=== PATIENT | female | born 2000 | race Asian ===

== ENCOUNTER 2024-11-10 13:17 | Outpatient (AMB) | payer MEDICAID, SELFPAY ==
--- NOTE | 2024-11-10 13:30 | AMB.OBINITIA ---
Vital Signs 11/10/24 13:36 Height 1.57 m Height Method Measured Weight 89.925 kg Weight Measurement Method Standing Scale BMI 36.2 BP 142/81 H Blood Pressure Source Automatic Cuff Blood Pressure Location Right Upper Arm Position Sitting Respiration 17 Pulse 82 Pulse Source Monitor Temp 98.1 F Temp Source Temporal Artery Scan Pulse Oximetry (%) 98 Oxygen Delivery Method Room Air Allergies/Home Meds Allergies & Medications Allergies No Known Allergies Allergy (Verified 11/10/24 13:37) Medication Reconciliation vit no.95-ferrous fumarate 28 mg-folic acid 800 mcg tablet () 1 tab PO QDAY 10/14/23 [History Confirmed 11/10/24] Intake Visit Data Collection New Patient or Established: Established Patient (seen at [facility] within 3 years) Reason for Visit:: OBI Seen by Clinical Staff ONLY (RN/MA): No Audio Visual Facilities Engineer Required: No Do You Feel Safe at Home: Yes Authorities Contacted: N/A PCP or OBGYN visit in last 3 months: Yes Date of Last PCP or OBGYN visit: 10/21/24 Hx Now: Yes Are you currently on any form of Control: No Pain Present Currently: No Pain Scale Used: Kaiser-Kasper/Numerical Pain scale:: 0 Smoking Status Smoking Status: Never smoker Questionnaires Covid-19 Vaccine Questionnaire Has patient been vacinated for Covid-19 Have you been vacinated for Covid-19: Yes PHQ-9 PHQ-2 Over the last 2 weeks, how often have you been bothered by any of the following problems? 1. Little interest or pleasure in doing things: not at all 2. Feeling down, depressed, or hopeless: not at all Total score: 0 PHQ-9 3. Trouble falling or staying asleep, or sleeping too much: Not at all 4. Feeling tired or having little energy: Not at all 5. Poor appetite or overeating: Not at all 6. Feeling bad about yourself - or that you are a failure or have let yourself or your family down: Not at all 7. Trouble concentrating on things, such as reading the newspaper or watching television: Not at all 8. Moving or speaking so slowly that other people could have noticed? - Or the opposite - being so fidgety or restless that you have been moving around a lot more than usual: not at all 9. Thoughts that you would be better off or of hurting yourself in some way: Not at all Total score: 0 If you checked off any problems, how difficult have these problems made it for you to do your work, take care of things at home, or get along with other people?: not difficult at all Source: Developed by Drs. Anand Min, Joycelyn Carter, Sarkis Hearn and colleagues, with an educational conchita from [employer]. 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 Her last menstrual period was on September 03, 2024. A bedside ultrasound revealed an empty gestational sac without a pole or heart tones. The patient's status is currently uncertain. Given the discrepancy between the patient's reported last menstrual period and the ultrasound findings, further evaluation was deemed necessary. As a result, the patient was referred to radiology for a more detailed transvaginal ultrasound. The patient has a history of one previous , with no further details provided about this previous delivery. Her obstetric history is significant for one prior resulting in a live via . Diagnostic Test Results and Labs: - Bedside ultrasound (Date N/A): Empty gestational sac without pole or heart tones. 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 Past Medical History: No Hx Neurological Disorders, No Hx Cardiac Disorders, No Hx Cancer, No Hx Blood Disorders, No Hx Anemia, No Hx Gastrointestinal Disorders, No Hx Renal Disease, No Hx Diabetes Mellitus Type 1 and No Hx Diabetes Mellitus Type 2 OB Initial Visit Menstrual History Menstrual reliability: definite Flow: normal Menstrual regularity: irregular Monthly: No Age at menarche: 18 On control pills at conception: No Date of positive home test: 10/21/24 OB History : 2 Para: 1 Hx # Pregnancies: 0 Hx Total # of Abortions (Spontaneous & Elective): 0 # of Living Children: 1 Delivery History 1st : Child's name: PONCHO GÓMEZ date: 10/15/23 sex: male Gestational age at delivery (weeks): 39 Delivery type: weight (lbs): 3175.147 g Delivery complications: HYPERTENSION History of depression before or after : No Infection History & Risk Evaluation History of STDs: chlamydia HIV risk evaluation: low risk Hepatitis B risk evaluation: low risk Patient or partner has history of Genital Herpes: No Genetic Screening & History Genetic Screening/Teratology Counseling - Includes patient, baby's father, or anyone in either family with: 1. Patient's age 35 years or older as of estimated date of delivery: No 2. Thalassemia (Mongolian, Surinamese, Mediterranean, or Background); MCV less than 80: No 3. Neural Tube Defect (Meningomyelocele, Spina Bifida, or Anencephaly): No 4. Congenital Heart Defect: No 5. Down Syndrome: No 6. Xiang-Sachs (Ashkenazi Hoahaoism, Cajun, Tunisian Ecuadorean): No 7. Consuelo Disease (Ashkenazi Hoahaoism): No 8. Familial Dysautonomia (Ashkenazi Hoahaoism): No 9. Sickle Cell Disease or Trait (): No 10. Hemophilia or other blood disorders: No 11. Muscular Dystrophy: No 12. Cystic Fibrosis: No 13. Albemarle's Chorea: No 14. Mental Retardation/Autism: No 15. Other inherited genetic or chromosomal disorder: No 16. Maternal Metabolic Disorder (EG,TYPE 1 Diabetes, PKU): No 17. Patient or baby's father had a child with defects not listed above: No 18. Recurrent loss or a stillbirth: No 19. Medications (including supplements, vitamins, herbs or otc drugs)/illicit/recreational drugs/alcohol since last menstrual period: No 20. Any other: No Infection History 1. Live with someone with TB or exposed to TB: No 2. Rash or viral illness since last menstrual period: No 3. Hepatitis B,C: No Other (see comments) Source: [employer] Review of Systems Review of Systems Systems Reviewed: All systems reviewed, normal except as documented Office Procedures OB Clinic LOC & Office Proc's Nursing/Assessment Patient Status: Established Patient OB Clinic Nursing Assessment: Medication Reconciliation, Update PMH in EMR and Vital Signs OB Clinic Coordination of Care: Complex Care/Chronic Disease 5 or more, Consent,records obtained, informed consent, Lab and Imaging orders and Staff clarify orders Special Needs: Heart tones Established Patient Charge Established Patient Point Assignment: 125 Established Patient Point Charge: EP Level 4 (120-155) Assessment & Plan Diagnosis / Problem List (1) of unknown anatomic location: Status: Acute Plan Early with Empty Gestational Sac: - Last menstrual period on 09/03/2024. - Bedside ultrasound shows empty gestational sac. - No pole or heart tones visible. - Concerning for potential early loss or ectopic . - Discrepancy between expected gestational age and ultrasound findings. Plan: - Perform transvaginal ultrasound in radiology for more detailed assessment. - Await results of transvaginal ultrasound for further management decisions. Note: Patient is 2 para 1 with history of previous .
[2024-11-10 13:36] VITALS: BP 142/81; PULSE 82; RESP 17; TEMP 36.7; O2SAT 98; BMI 36.2
== END 2024-11-10 14:05 | disposition home or self-care (01) ==
LOC: HODSOBC 13:17
PROVIDERS: Supervising Provider Obstetrics & Gynecology; Visit Provider Obstetrics & Gynecology
DX: O36.80X0 Pregnancy with inconclusive fetal viability, not applicable or unspecified (principal); Z3A.00 Weeks of gestation of pregnancy not specified
CPT/HCPCS: 99214; G0463

== ENCOUNTER → 2024-11-13 | Outpatient (CLI) | payer MEDICAID, SELFPAY ==
--- NOTE | 2024-11-13 13:42 | XR_ITS ---
Examination: Complete OB ultrasound, less than 14 weeks, transabdominal Date and time of exam: November 13, 2024 1409 hours INDICATIONS: Unknown age Technique: Obstetrical ultrasound images less than 14 weeks performed via transabdominal imaging Findings: A normal shaped single intrauterine gestation is present in the uterus. CRL 2.2 cm corresponds to 8 week 6 day gestational age Cardiac motion 176 BPM Ultrasonographic survey of visible and placental structures unremarkable. Amniotic fluid volume appears appropriate for this estimated gestational age. Right ovary 3.7 cm arterial flow Left ovary 4.7 cm arterial flow IMPRESSION: Viable intrauterine gestation 8 weeks 6 days Mildly prominent left ovary, recommend follow-up.
== END | disposition home or self-care (01) ==
PROVIDERS: Referring Provider Obstetrics & Gynecology; Visit Provider Obstetrics & Gynecology
DX: O36.80X0 Pregnancy with inconclusive fetal viability, not applicable or unspecified (principal); Z3A.08 8 weeks gestation of pregnancy; N83.8 Other noninflammatory disorders of ovary, fallopian tube and broad ligament
CPT/HCPCS: 76801

== ENCOUNTER 2024-11-22 11:02 | Outpatient (AMB) | payer MEDICAID, SELFPAY ==
[2024-11-22 11:23] VITALS: BP 109/71; PULSE 72; RESP 17; TEMP 36.8; O2SAT 98; BMI 35.6
--- NOTE | 2024-11-22 11:23 | OBCLNT_ITS ---
Vital Signs 11/22/24 11:23 Height 1.57 m Height Method Measured Weight 87.77 kg Weight Measurement Method Standing Scale BMI 35.6 BP 109/71 Blood Pressure Source Automatic Cuff Blood Pressure Location Right Upper Arm Position Sitting Respiration 17 Pulse 72 Pulse Source Monitor Temp 98.2 F Temp Source Temporal Artery Scan Pulse Oximetry (%) 98 Oxygen Delivery Method Room Air Allergies/Home Meds Allergies & Medications Allergies No Known Allergies Allergy (Verified 11/22/24 11:24) Medication Reconciliation vit no.95-ferrous fumarate 28 mg-folic acid 800 mcg tablet () 1 tab PO QDAY 10/14/23 [History Confirmed 11/22/24] Intake Visit Data Collection New Patient or Established: Established Patient (seen at [facility] within 3 years) Reason for Visit:: OBC Consent obtained for Telemed Visit: No Seen by Clinical Staff ONLY (RN/MA): No Activity Aid Required: No Do You Feel Safe at Home: Yes Authorities Contacted: N/A PCP or OBGYN visit in last 3 months: Yes Date of Last PCP or OBGYN visit: 11/10/24 Hx Now: Yes Are you currently on any form of Control: No Pain Present Currently: No Pain Scale Used: Kaiser-Kasper/Numerical Pain scale:: 0 Smoking Status Smoking Status: Never smoker Questionnaires Covid-19 Vaccine Questionnaire Has patient been vacinated for Covid-19 Have you been vacinated for Covid-19: Yes PHQ-9 PHQ-2 Over the last 2 weeks, how often have you been bothered by any of the following problems? 1. Little interest or pleasure in doing things: not at all PHQ-9 8. Moving or speaking so slowly that other people could have noticed? - Or the opposite - being so fidgety or restless that you have been moving around a lot more than usual: not at all Total score: 0 Source: Developed by Drs. Anand Min, Joycelyn Carter, Sarkis Hearn and colleagues, with an educational conchita from [employer]. 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 Past Medical History: No Hx Neurological Disorders, No Hx Cardiac Disorders, No Hx Cancer, No Hx Blood Disorders, No Hx Anemia, No Hx Gastrointestinal Disorders, No Hx Renal Disease, No Hx Diabetes Mellitus Type 1 and No Hx Diabetes Mellitus Type 2 Care ANA CRISTINA Calculator Estimated Delivery Date Method Current WG Current Estimate 06/19/25 Ultrasound #1 10w 1d Office Procedures OB Clinic LOC & Office Proc's Nursing/Assessment Patient Status: Established Patient OB Clinic Nursing Assessment: Medication Reconciliation, Update PMH in EMR and Vital Signs OB Clinic Coordination of Care: Complex Care and Chronic Disease 1-5, Education Complex Pt/Fam, Consent,records obtained, informed consent, Education Simp Pt/Fam and Staff clarify orders Special Needs: Heart tones Established Patient Charge Established Patient Point Assignment: 135 Established Patient Point Charge: EP Level 4 (120-155)
== END 2024-11-22 11:34 | disposition home or self-care (01) ==
LOC: HODSOBC 11:02
PROVIDERS: Supervising Provider Obstetrics & Gynecology; Visit Provider Obstetrics & Gynecology
DX: Z34.91 Encounter for supervision of normal pregnancy, unspecified, first trimester (principal); Z3A.10 10 weeks gestation of pregnancy
CPT/HCPCS: 99214; G0463

== ENCOUNTER 2024-12-20 10:00 | Outpatient (AMB) | payer MEDICAID, SELFPAY ==
[2024-12-20 10:11] VITALS: BP 111/71; PULSE 77; RESP 17; TEMP 36.7; O2SAT 98; BMI 35.4
--- NOTE | 2024-12-20 10:11 | OBCLNT_ITS ---
Vital Signs 12/20/24 10:11 Height 1.57 m Height Method Stated Weight 87.203 kg Weight Measurement Method Standing Scale BMI 35.4 BP 111/71 Blood Pressure Source Automatic Cuff Blood Pressure Location Right Upper Arm Position Sitting Respiration 17 Pulse 77 Pulse Source Monitor Temp 98.0 F Temp Source Temporal Artery Scan Pulse Oximetry (%) 98 Oxygen Delivery Method Room Air Allergies/Home Meds Allergies & Medications Allergies No Known Allergies Allergy (Verified 02/19/25 10:02) Medication Reconciliation aspirin 81 mg tablet 81 mg PO QDAY 90 days #90 tabs 01/26/25 [Rx Confirmed ] vits no.126-ferrous fum 28 mg iron-folic acid 800 mcg tablet (Classic ) 1 tab PO QDAY 90 days #90 tabs 02/05/25 [Rx Confirmed 02/19/25] blood sugar diagnostic (Blood Glucose Test strips) #100 ea 02/26/25 [Rx] blood-glucose meter #1 ea 02/26/25 [Rx] lancets 21 gauge #100 ea 02/26/25 [Rx] Intake Visit Data Collection New Patient or Established: Established Patient (seen at [facility] within 3 years) Reason for Visit:: OBC 14W Seen by Clinical Staff ONLY (RN/MA): No Sensor Specialist Required: No Do You Feel Safe at Home: Yes Authorities Contacted: N/A PCP or OBGYN visit in last 3 months: Yes Date of Last PCP or OBGYN visit: 11/22/24 Hx Now: Yes Are you currently on any form of Control: No Pain Present Currently: No Pain Scale Used: Kaiser-Kasper/Numerical Pain scale:: 0 Smoking Status Smoking Status: Never smoker Questionnaires Covid-19 Vaccine Questionnaire Has patient been vacinated for Covid-19 Have you been vacinated for Covid-19: No PHQ-9 PHQ-2 Over the last 2 weeks, how often have you been bothered by any of the following problems? 1. Little interest or pleasure in doing things: not at all 2. Feeling down, depressed, or hopeless: not at all Total score: 0 PHQ-9 3. Trouble falling or staying asleep, or sleeping too much: Not at all 4. Feeling tired or having little energy: Not at all 5. Poor appetite or overeating: Not at all 6. Feeling bad about yourself - or that you are a failure or have let yourself or your family down: Not at all 7. Trouble concentrating on things, such as reading the newspaper or watching television: Not at all 8. Moving or speaking so slowly that other people could have noticed? - Or the opposite - being so fidgety or restless that you have been moving around a lot more than usual: not at all 9. Thoughts that you would be better off or of hurting yourself in some way: Not at all Total score: 0 If you checked off any problems, how difficult have these problems made it for you to do your work, take care of things at home, or get along with other people?: not difficult at all Source: Developed by Drs. Anand Min, Joycelyn Carter, Sarkis Hearn and colleagues, with an educational conchita from [facility]. 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 Patient reports nausea and vomiting that has dialed down a bit. Denies VICK, VC, and epigastric pain. - Leo Izaguirre is a 2 para 1 fe male with a history of one prior section presenting for routine care at 14 weeks and 1 day gestation. - She reports that her nausea and vomiti ng have dialed down a bit since her last visit. - She confirms awareness that she is carrying a male fetus. - Follow up in one month for routine care - Patient will receive call from [facility] for 20-week ultrasound (due in February) - Repeat scheduled at 39 weeks , one week before due date - If water breaks: deliver at 37+ weeks; hospitalize with medications for delivery between 34-37 weeks; hospitalize until 34 weeks if rupture occurs before 34 weeks 02/05/25 -?-?-?-?-?-?-?-?-?-?-?-?- 20w 6d 93.95 kg 126/76 absent cephalic 21 145 active presenting for blood pressure check. - Current blood pressure: 126/76 mmHg - Improved from last week's elevated r eading of 136/76 mmHg - Patient was prescribed low-dose aspiri n at previous visit - Has not yet started taking it - Patient inquired about obtaining a WIC referral - Confirms plans to attempt (Vaginal After ) Plan - Start low-dose aspirin regimen - Send prescription for aspirin to [facility] - Follow up in 4 weeks - Return sooner if experiencing headache , bloating, or feeling uneasy - Continue with V-FARIDA plan - Patient to obtain WIC referral form [facility] WIC office for completion ANA CRISTINA Calculator Estimated Delivery Date Method Current WG Current Estimate 06/19/25 Ultrasound #1 24w 4d Notes Visit Date: 12/20/24 Last Updated by: Delvis Bangura MD - Date: 11/26/2024 - Initial panel: Hepatitis B negative, Hepatitis C negative, RPR non-reactive, Rubella immune, Blood group B-positive, Antibody screen negative, Gonorrhea negative, Chlamydia negative - Urinalysis: Grossly within normal limits with 1+ protein and 1+ ketones - Genetic screening (NiPT): Negative for trisomies, consistent with male gender - Obstetric ultrasound (12/20/2024): anatomy appropriate, placenta normal appearance, amniotic fluid normal, gender male heart tones: Not documented bpm. Assessment & Plan Diagnosis / Problem List (1) Abnormal glucose complicating : Status: Acute (2) Uterine size date discrepancy, antepartum: Status: Acute (3) Maternal care for low transverse scar from previous delivery: Status: Acute (4) Supervision of high risk , unspecified, first trimester: Status: Acute Plan Problem List - , second trimester - History of delivery - Nausea and vomiting of - Proteinuria - Ketonuria Assessment 14-week and 1-day intrauterine in a 2, para 1 patient with history of previous section, progressing appropriately with normal anatomy on ultrasound examination. Initial laboratory panel demo nstrates negative infectious disease screening including hepatitis B, hepatitis C, syphilis, gonorrhea, and chlamydia, with documented rubella immunity and B- positive blood type with negative antibody screen. Genetic screening via NIPT is negative for trisomies with male gender confirmed. Urinalysis shows trace proteinuria and ketonuria but is otherwise within normal limits. Patient reports improvement in nausea and vomiting symptoms. Ultrasound examination reveals normal anatomy, appropriate amniotic fluid levels, and normal placental appearance. Plan - Follow up in one month for routine care - Patient will receive call from [facility] for 20-week ultrasound (due in February) - Repeat scheduled at 39 weeks, one week before due date - If water breaks: deliver at 37+ weeks; hospitalize with medications for delivery between 34-37 weeks; hospitalize until 34 weeks if rupture occurs before 34 weeks
== END 2024-12-20 10:41 | disposition home or self-care (01) ==
LOC: HODSOBC 10:00
PROVIDERS: PCP Obstetrics & Gynecology; Referring Provider Obstetrics & Gynecology; Supervising Provider Obstetrics & Gynecology; Visit Provider Obstetrics & Gynecology
DX: O09.892 Supervision of other high risk pregnancies, second trimester (principal); O26.842 Uterine size-date discrepancy, second trimester; O99.810 Abnormal glucose complicating pregnancy; O21.9 Vomiting of pregnancy, unspecified; O09.292 Supervision of pregnancy with other poor reproductive or obstetric history, second trimester; O34.211 Maternal care for low transverse scar from previous cesarean delivery; Z3A.14 14 weeks gestation of pregnancy
CPT/HCPCS: 99213; G0463

== ENCOUNTER 2025-01-26 14:27 | Outpatient (AMB) | payer MEDICAID, SELFPAY ==
[2025-01-26 14:37] VITALS: BP 136/76; PULSE 96; RESP 16; TEMP 36.6; O2SAT 98; BMI 37.5
--- NOTE | 2025-01-26 14:37 | OBCLNT_ITS ---
Vital Signs 01/26/25 14:37 Height 1.57 m Height Method Stated Weight 92.703 kg Weight Measurement Method Standing Scale BMI 37.5 BP 136/76 H Blood Pressure Source Automatic Cuff Blood Pressure Location Left Upper Arm Position Sitting Respiration 16 Pulse 96 Pulse Source Monitor Temp 97.8 F Temp Source Oral Pulse Oximetry (%) 98 Oxygen Delivery Method Room Air Allergies/Home Meds Allergies & Medications Allergies No Known Allergies Allergy (Verified 02/19/25 10:02) Medication Reconciliation aspirin 81 mg tablet 81 mg PO QDAY 90 days #90 tabs 01/26/25 [Rx Confirmed 02/19/25] vits no.126-ferrous fum 28 mg iron-folic acid 800 mcg tablet (Classic ) 1 tab PO QDAY 90 days #90 tabs 02/05/25 [Rx Confirmed 02/19/25] blood sugar diagnostic (Blood Glucose Test strips) #100 ea 02/26/25 [Rx] blood-glucose meter #1 ea 02/26/25 [Rx] lancets 21 gauge #100 ea 02/26/25 [Rx] Intake Visit Data Collection New Patient or Established: Established Patient (seen at [facility] within 3 years) Reason for Visit:: OBC Seen by Clinical Staff ONLY (RN/MA): No 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 1. Little interest or pleasure in doing things: not at all 2. Feeling down, depressed, or hopeless: not at all Total score: 0 PHQ-9 3. Trouble falling or staying asleep, or sleeping too much: Not at all 4. Feeling tired or having little energy: Not at all 5. Poor appetite or overeating: Not at all 6. Feeling bad about yourself - or that you are a failure or have let yourself or your family down: Not at all 7. Trouble concentrating on things, such as reading the newspaper or watching television: Not at all 8. Moving or speaking so slowly that other people could have noticed? - Or the opposite - being so fidgety or restless that you have been moving around a lot more than usual: not at all 9. Thoughts that you would be better off or of hurting yourself in some way: Not at all Total score: 0 If you checked off any problems, how difficult have these problems made it for you to do your work, take care of things at home, or get along with other people?: not difficult at all Source: Developed by Drs. Anand Min, Joycelyn Carter, Sarkis Hearn and colleagues, with an educational conchita from [employer] 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 Patient reports nausea and vomiting that has dialed down a bit. Denies VICK, VC, and epigastric pain. - Leo Izaguirre is a 2 para 1 fe male with a history of one prior section presenting for routine care at 14 weeks and 1 day gestation. - She reports that her nausea and vomiti ng have dialed down a bit since her last visit. - She confirms awareness that she is carrying a male fetus. - Follow up in one month for routine care - Patient will receive call from [facility] for 20-week ultrasound (due in February) - Repeat scheduled at 39 weeks , one week before due date - If water breaks: deliver at 37+ weeks; hospitalize with medications for delivery between 34-37 weeks; hospitalize until 34 weeks if rupture occurs before 34 weeks 01/26/25 -?-?-?-?-?-?-?-?-?-?-?-?- 19w 3d 92.703 kg 136/76 absent cephalic 145 active - She has a history of previous section and her last was induced for high blood pressure. - She reports experiencing morning nause a. - She has been monitoring her blood pres sure at home over the past week, with readings around 120/80. - Start baby aspirin to prevent preeclampsia - Monitor blood pressure at home and rowdy l if systolic over 140 or diastolic over 90 - Report headaches, flashes of light, or right-sided pain - Will consult with Sheree for and continue appointments here until 37-38 weeks, then transfer - Have a glass of cold milk in the [facility] for nausea - Follow up in 2 weeks for blood pressur e check - Follow up in 4 weeks for routine OB an d MS-AFP 02/05/25 -?-?-?-?-?-?-?-?-?-?-?-?- 20w 6d 93.95 kg 126/76 absent cephalic 21 145 active presenting for blood pressure check. - Current blood pressure: 126/76 mmHg - Improved from last week's elevated r eading of 136/76 mmHg - Patient was prescribed low-dose aspiri n at previous visit - Has not yet started taking it - Patient inquired about obtaining a [place] referral - Confirms plans to attempt (Vaginal After ) Plan - Start low-dose aspirin regimen - Send prescription for aspirin to [facility] in [facility] - Follow up in 4 weeks - Return sooner if experiencing headache , bloating, or feeling uneasy - Continue with V-FARIDA plan - Patient to obtain [facility] referral form om [facility] office for completion ANA CRISTINA Calculator Estimated Delivery Date Method Current WG Current Estimate 06/19/25 Ultrasound #1 24w 4d Notes Visit Date: 12/20/24 Last Updated by: Delvis Bangura MD - Date: 11/26/2024 - Initial panel: Hepatitis B negative, Hepatitis C negative, RPR non-reactive, Rubella immune, Blood group B-positive, Antibody screen negative, Gonorrhea negative, Chlamydia negative - Urinalysis: Grossly within normal limits with 1+ protein and 1+ ketones - Genetic screening (NiPT): Negative for trisomies, consistent with male gender - Obstetric ultrasound (12/20/2024): anatomy appropriate, placenta normal appearance, amniotic fluid normal, gender male heart tones: Not documented bpm. Assessment & Plan Diagnosis / Problem List (1) Abnormal glucose complicating : Status: Acute (2) Uterine size date discrepancy, antepartum: Status: Acute (3) Maternal care for low transverse scar from previous delivery: Status: Acute Plan Problem List - Hypertension in - History of delivery - Nausea and vomiting of Assessment 24-year-old 2 para 1 at 19 weeks and 3 days gestation presenting with elevated blood pressure of 150/77 mmHg, representing a significant increase from previous reading of 111/71 mmHg, with history of -induced hypertension in prior requiring induction. Patient has history of previous section with pending maternal- medicine consultation. Patient reports morning nausea symptoms during current . Plan - Start baby aspirin to prevent preeclampsia - Monitor blood pressure at home and call if systolic over 140 or diastolic over 90 - Report headaches, flashes of light, or right-sided pain - Will consult with Sheree for and continue appointments here until 37-38 weeks, then transfer - Have a glass of cold milk in the morning for nausea - Follow up in 2 weeks for blood pressure check - Follow up in 4 weeks for routine OB and MS-AFP 1. Progress Reviewed gestational age (19 weeks 3 days), growth, and heart rate. Planned frequent visits (every 2 weeks until 36 weeks, then weekly). 2. Instructed patient to monitor movements and report decreases immediately. 3. Testing Counseled on routine third-trimester labs per guidelines. Discussed potential need for ultrasound or monitoring based on risk factors. 4. Preeclampsia Precaution Educated on preeclampsia signs: severe headache, vision changes, right upper quadrant pain, sudden swelling. Advised urgent reporting of symptoms and discussed blood pressure monitoring if high risk. 5. Labor Precautions Reviewed labor signs: regular contractions, pelvic pressure, back pain, bleeding, or fluid leakage. Instructed to seek immediate care for these symptoms. 6. Lifestyle and Delivery Preparation Reinforced vitamins, nutrition, and safe activity. Discussed plan, pain management, and . Advised on labor preparation (e.g., hospital bag) and expectations. 7. Psychosocial Support Assessed emotional well-being and offered resources for mental health or parenting support.
== END 2025-01-26 14:42 | disposition home or self-care (01) ==
LOC: HODSOBC 14:27
PROVIDERS: Supervising Provider Obstetrics & Gynecology; Visit Provider Obstetrics & Gynecology
DX: O09.892 Supervision of other high risk pregnancies, second trimester (principal); O99.810 Abnormal glucose complicating pregnancy; O09.292 Supervision of pregnancy with other poor reproductive or obstetric history, second trimester; O26.842 Uterine size-date discrepancy, second trimester; O34.211 Maternal care for low transverse scar from previous cesarean delivery; O13.2 Gestational [pregnancy-induced] hypertension without significant proteinuria, second trimester; O21.9 Vomiting of pregnancy, unspecified; Z3A.19 19 weeks gestation of pregnancy
CPT/HCPCS: 99213; G0463

== ENCOUNTER 2025-02-05 13:24 | Outpatient (AMB) | payer MEDICAID, SELFPAY ==
[2025-02-05 13:36] VITALS: BP 126/76; PULSE 97; RESP 18; TEMP 36.6; O2SAT 98; BMI 38.1
--- NOTE | 2025-02-05 13:36 | AMB.OBVISIT ---
Vital Signs 02/05/25 13:36 Height 1.57 m Height Method Stated Weight 93.95 kg Weight Measurement Method Standing Scale BMI 38.1 BP 126/76 Blood Pressure Source Automatic Cuff Blood Pressure Location Left Upper Arm Position Sitting Respiration 18 Pulse 97 Pulse Source Monitor Temp 97.8 F Temp Source Oral Pulse Oximetry (%) 98 Oxygen Delivery Method Room Air Allergies/Home Meds Allergies & Medications Allergies No Known Allergies Allergy (Verified 02/05/25 13:36) Medication Reconciliation aspirin 81 mg tablet 81 mg PO QDAY 90 days #90 tabs 01/26/25 [Rx Confirmed 02/05/25] vits no.126-ferrous fum 28 mg iron-folic acid 800 mcg tablet (Classic ) 1 tab PO QDAY 90 days #90 tabs 02/05/25 [Rx] Intake Visit Data Collection New Patient or Established: Established Patient (seen at [facility] within 3 years) Reason for Visit:: CARE Seen by Clinical Staff ONLY (RN/MA): No 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 1. Little interest or pleasure in doing things: not at all 2. Feeling down, depressed, or hopeless: not at all Total score: 0 PHQ-9 3. Trouble falling or staying asleep, or sleeping too much: Not at all 4. Feeling tired or having little energy: Not at all 5. Poor appetite or overeating: Not at all 6. Feeling bad about yourself - or that you are a failure or have let yourself or your family down: Not at all 7. Trouble concentrating on things, such as reading the newspaper or watching television: Not at all 8. Moving or speaking so slowly that other people could have noticed? - Or the opposite - being so fidgety or restless that you have been moving around a lot more than usual: not at all 9. Thoughts that you would be better off or of hurting yourself in some way: Not at all Total score: 0 Source: Developed by Drs. Anand Min, Joycelyn Carter, Sarkis Hearn and colleagues, with an educational conchita from [employer]. 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 - Current blood pressure: 126/76 mmHg - Improved from last week's elevated reading of 136/76 mmHg - Patient was prescribed low-dose aspirin at previous visit - Has not yet started taking it - Patient inquired about obtaining a [facility] referral - Confirms plans to attempt (Vaginal After ) Plan - Start low-dose aspirin regimen - [facility] - Follow up in 4 weeks - Return sooner if experiencing headache, bloating, or feeling uneasy - Continue with V-FARIDA plan - Patient to obtain [place] referral form from [facility] office for completion ANA CRISTINA Calculator Estimated Delivery Date Method Current WG Current Estimate 06/19/25 Ultrasound #1 21w 0d Assessment & Plan Diagnosis / Problem List (1) Uterine size date discrepancy, antepartum: Status: Acute (2) Maternal care for low transverse scar from previous delivery: Status: Acute (3) Supervision of high risk , unspecified, first trimester: Status: Acute Plan Problem List - - History of delivery Assessment 24-year-old at 20 weeks and 6 days gestation presenting for blood pressure check. Current blood pressure is 126/76, improved from last week's reading of 136/76. Patient was prescribed low-dose aspirin for prevention of blood pressure elevation but has not yet started taking it. Patient is planning for a vaginal after (). Plan - Start low-dose aspirin regimen - Send prescription [facility] aspirin to [facility] - Follow up in 4 weeks - Return sooner if experiencing headache, bloating, or feeling uneasy - Continue with V-FARIDA plan - Patient to obtain [facility] referral form from [facility] office for completion 1. Progress Reviewed gestational age, growth, and heart rate. Planned frequent visits (every 4 weeks). 2. Instructed patient to monitor movements and report decreases immediately. 3. Testing Counseled on routine third-trimester labs per guidelines. Discussed potential need for ultrasound or monitoring based on risk factors. 4. Preeclampsia Precaution Educated on preeclampsia signs: severe headache, vision changes, right upper quadrant pain, sudden swelling. Advised urgent reporting of symptoms and discussed blood pressure monitoring if high risk. 5. Labor Precautions Reviewed labor signs: regular contractions, pelvic pressure, back pain, bleeding, or fluid leakage. Instructed to seek immediate care for these symptoms. 6. Lifestyle and Delivery Preparation Reinforced vitamins, nutrition, and safe activity. Discussed plan, pain management, and . Advised on labor preparation (e.g., hospital bag) and expectations. 7. Psychosocial Support Assessed emotional well-being and offered resources for mental health or parenting support.
== END 2025-02-05 13:56 | disposition home or self-care (01) ==
LOC: HODSOBC 13:24
PROVIDERS: Supervising Provider Obstetrics & Gynecology; Visit Provider Obstetrics & Gynecology
DX: O09.292 Supervision of pregnancy with other poor reproductive or obstetric history, second trimester (principal); O34.211 Maternal care for low transverse scar from previous cesarean delivery; O09.892 Supervision of other high risk pregnancies, second trimester; O26.842 Uterine size-date discrepancy, second trimester; Z3A.20 20 weeks gestation of pregnancy
CPT/HCPCS: 99214; G0463

== ENCOUNTER 2025-02-19 09:37 | Outpatient (AMB) | payer MEDICAID, SELFPAY ==
--- NOTE | 2025-02-19 09:51 | AMB.OBVISIT ---
Vital Signs 02/19/25 09:52 Height 1.57 m Height Method Stated Weight 94.914 kg Weight Measurement Method Standing Scale BMI 38.2 BP 111/73 Blood Pressure Source Automatic Cuff Blood Pressure Location Left Upper Arm Position Standing Respiration 18 Pulse 94 Pulse Source Monitor Temp 97.3 F Temp Source Oral Pulse Oximetry (%) 98 Oxygen Delivery Method Room Air Allergies/Home Meds Allergies & Medications Allergies No Known Allergies Allergy (Verified 02/19/25 10:02) Medication Reconciliation aspirin 81 mg tablet 81 mg PO QDAY 90 days #90 tabs 01/26/25 [Rx Confirmed 02/19/25] vits no.126-ferrous fum 28 mg iron-folic acid 800 mcg tablet (Classic ) 1 tab PO QDAY 90 days #90 tabs 02/05/25 [Rx Confirmed 02/19/25] Intake Visit Data Collection New Patient or Established: Established Patient (seen at [facility] within 3 years) Reason for Visit:: OBC Seen by Clinical Staff ONLY (RN/MA): No 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 1. Little interest or pleasure in doing things: not at all 2. Feeling down, depressed, or hopeless: not at all Total score: 0 PHQ-9 3. Trouble falling or staying asleep, or sleeping too much: Not at all 4. Feeling tired or having little energy: Not at all 5. Poor appetite or overeating: Not at all 6. Feeling bad about yourself - or that you are a failure or have let yourself or your family down: Not at all 7. Trouble concentrating on things, such as reading the newspaper or watching television: Not at all 8. Moving or speaking so slowly that other people could have noticed? - Or the opposite - being so fidgety or restless that you have been moving around a lot more than usual: not at all 9. Thoughts that you would be better off or of hurting yourself in some way: Not at all Total score: 0 If you checked off any problems, how difficult have these problems made it for you to do your work, take care of things at home, or get along with other people?: not difficult at all Source: Developed by Drs. Anand Min, Joycelyn Carter, Sarkis Hearn and colleagues, with an educational conchita from [employer]. 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 - Current blood pressure: 126/76 mmHg - Improved from last week's elevated reading of 136/76 mmHg - Patient was prescribed low-dose aspirin at previous visit - Has not yet started taking it - Patient inquired about obtaining a [facility] referral - Confirms plans to attempt (Vaginal After ) Plan - Start low-dose aspirin regimen - Send prescription for aspirin to [facility] - Follow up in 4 weeks - Return sooner if experiencing headache, bloating, or feeling uneasy - Continue with V-FARIDA plan - Patient to obtain [facility] referral form from [facility] office for completion ANA CRISTINA Calculator Estimated Delivery Date Method Current WG Current Estimate 06/19/25 Ultrasound #1 22w 6d Office Procedures OBC Clinic LOC & Office Proc's Nursing/Assessment Patient Status: Established Patient OB Clinic Nursing Assessment: Medication Reconciliation, Update PMH in EMR and Vital Signs OB Clinic Coordination of Care: Education Complex Pt/Fam, Consent,records obtained, informed consent, Lab and Imaging orders, Results/Orders obtained and Staff clarify orders Special Needs: Heart tones Established Patient Charge Established Patient Point Assignment: 115 Established Patient Point Charge: EP Level 3 (80-115) Assessment & Plan Diagnosis / Problem List (1) Maternal care for low transverse scar from previous delivery: Status: Acute
[2025-02-19 09:52] VITALS: BP 111/73; PULSE 94; RESP 18; TEMP 36.3; O2SAT 98; BMI 38.2
== END 2025-02-19 10:09 | disposition home or self-care (01) ==
LOC: HODSOBC 09:37
PROVIDERS: Supervising Provider Obstetrics & Gynecology; Visit Provider Obstetrics & Gynecology
DX: O09.292 Supervision of pregnancy with other poor reproductive or obstetric history, second trimester (principal); O34.211 Maternal care for low transverse scar from previous cesarean delivery; Z3A.20 20 weeks gestation of pregnancy
CPT/HCPCS: 99213; G0463

== ENCOUNTER 2025-03-07 11:21 | Outpatient (AMB) | payer MEDICAID, SELFPAY ==
[2025-03-07 11:40] VITALS: BP 131/81; PULSE 100; RESP 20; TEMP 36.6; O2SAT 98; BMI 38.3
--- NOTE | 2025-03-07 11:40 | OBCLNT_ITS ---
Vital Signs 03/07/25 11:40 Height 1.57 m Height Method Stated Weight 95.028 kg Weight Measurement Method Standing Scale BMI 38.3 BP 131/81 H Blood Pressure Source Automatic Cuff Blood Pressure Location Left Upper Arm Position Sitting Respiration 20 Pulse 100 Pulse Source Monitor Temp 97.9 F Temp Source Oral Pulse Oximetry (%) 98 Oxygen Delivery Method Room Air Allergies/Home Meds Allergies & Medications Allergies No Known Allergies Allergy (Verified 03/07/25 11:58) Medication Reconciliation aspirin 81 mg tablet 81 mg PO QDAY 90 days #90 tabs 01/26/25 [Rx Confirmed 03/07/25] vits no.126-ferrous fum 28 mg iron-folic acid 800 mcg tablet (Classic ) 1 tab PO QDAY 90 days #90 tabs 02/05/25 [Rx Confirmed 03/07/25] blood sugar diagnostic (Blood Glucose Test strips) #100 ea 02/26/25 [Rx Confirmed 03/07/25] blood-glucose meter #1 ea 02/26/25 [Rx Confirmed 03/07/25] lancets 21 gauge #100 ea 02/26/25 [Rx Confirmed 03/07/25] metformin 500 mg tablet 500 mg PO QDAY 90 days #90 tabs 03/13/25 [Rx] Intake Visit Data Collection New Patient or Established: Established Patient (seen at [facility] within 3 years) Reason for Visit:: CARE Seen by Clinical Staff ONLY (RN/MA): No 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 Required: No Do You Feel Safe at Home: Yes Authorities Contacted: N/A PCP or OBGYN visit in last 3 months: Yes Hx Now: Yes Are you currently on any form of Control: No Pain Present Currently: No Pain Scale Used: [employer]/Numerical Pain scale:: 0 Smoking Status Smoking Status: Never smoker Immunizations Flu Vaccine in the Last 12 Months: No Flu Vaccine Exclusion Criteria: No Exclusion Criteria Questionnaires Covid-19 Vaccine Questionnaire Has patient been vacinated for Covid-19 Have you been vacinated for Covid-19: Yes PHQ-9 PHQ-2 Over the last 2 weeks, how often have you been bothered by any of the following problems? 1. Little interest or pleasure in doing things: not at all 2. Feeling down, depressed, or hopeless: not at all Total score: 0 PHQ-9 3. Trouble falling or staying asleep, or sleeping too much: Not at all 4. Feeling tired or having little energy: Not at all 5. Poor appetite or overeating: Not at all 6. Feeling bad about yourself - or that you are a failure or have let yourself or your family down: Not at all 7. Trouble concentrating on things, such as reading the newspaper or watching television: Not at all 8. Moving or speaking so slowly that other people could have noticed? - Or the opposite - being so fidgety or restless that you have been moving around a lot more than usual: not at all 9. Thoughts that you would be better off or of hurting yourself in some way: Not at all Total score: 0 Source: Developed by Drs. Anand Min, Joycelyn Carter, Sarkis Hearn and colleagues, with an educational conchita from [employer]. 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 Patient reports nausea and vomiting that has dialed down a bit. Denies VICK, VC, and epigastric pain. - Leo Izaguirre is a 2 para 1 fe male with a history of one prior foster arean section presenting for routine care at 14 weeks and 1 day gestation. - She reports that her nausea and vomiti ng have dialed down a bit since her last visit. - She confirms awareness that she is carrying a male fetus. - Follow up in one month for routine care - Patient will receive call from [facility] for 20-week ultrasound (due in February) - Repeat scheduled at 39 weeks , one week before due date - If water breaks: deliver at 37+ weeks; hospitalize with medications for delivery between 34-37 weeks; hospitalize until 34 weeks if rupture occurs before 34 weeks 01/26/25 -?-?-?-?-?-?-?-?-?-?-?-?- 19w 3d 92.703 kg 136/76 absent cephalic 145 active - She has a history of previous section and her last was induced for high blood pressure. - She reports experiencing morning nause a. - She has been monitoring her blood pres sure at home over the past week, with readings around 120/80. - Start baby aspirin to prevent preeclampsia - Monitor blood pressure at home and rowdy l if systolic over 140 or diastolic over 90 - Report headaches, flashes of light, or right-sided pain - Will consult with She[facility] for and continue appointments here until 37-38 weeks, then transfer - Have a glass of cold milk in the [facility] for nausea - Follow up in 2 weeks for blood pressur e check - Follow up in 4 weeks for routine OB an d MS-AFP 02/05/25 -?-?-?-?-?-?-?-?-?-?-?-?- 20w 6d 93.95 kg 126/76 absent cephalic 21 145 active presenting for blood pressure check. - Current blood pressure: 126/76 mmHg - Improved from last week's elevated r eading of 136/76 mmHg - Patient was prescribed low-dose aspiri n at previous visit - Has not yet started taking it - Patient inquired about obtaining a [place] referral - Confirms plans to attempt (Vaginal After ) Plan - Start low-dose aspirin regimen - Send prescription for aspirin to [facility] in [facility] - Follow up in 4 weeks - Return sooner if experiencing headache , bloating, or feeling uneasy - Continue with V-FARIDA plan - Patient to obtain [facility] referral form om [facility] office for completion 02/19/25 -?-?-?-?-?-?-?-?-?-?-?-?- 22w 6d 94.914 kg 111/73 absent cephalic 23 165 active - Patient is due for one-hour glucose tolerance test. - All previous screening tests, includin g AFP, have been negative. - A referral has been sent to the women' s clinic in [place] for potential transfe r of care at 37 weeks gestation. - Patient has a history of previous section. - One-hour glucose tolerance test to be completed within the next 2-3 weeks - Referral sent to women's clinic in [facility] for review and establishment of care - Plan to transfer care at approximately 37 weeks gestation - Follow-up appointment scheduled in 4 w eeks - Patient to expect phone call from [facility] 03/07/25 -?-?-?-?-?-?-?-?-?-?-?-?- w 1d 95.028 kg 131/81 absent cephalic 25 155 active - She reports her highest glucose reading was 143 mg/dL, which occurred after eating rice. - Morning fasting glucose numbers are in the hundreds, with readings of 80, 86, and 103 mg/dL documented. - She has been monitoring her blood gluc ose levels and documenting her food intake to correlate with glucose spikes. - She notes that rice consumption causes her glucose levels to increase. - She reports eating normal foods and no t being particularly strict with her diet. - She currently eats rice 2-3 times per week, typically steamed rice. - She has not received a call from [facility] but did receive a letter from them. - Her wants her to deliver in [facility] due to proximity, but she reports difficulty finding accepting providers in that area. Plan - Start metformin once daily with breakf ast for gestational diabetes management - Continue current glucose monitoring re [facility] - Implement 15-20 minute rubber press tender w alks to help reduce fasting glucose levels - Follow dietary modifications: eat prot ein and vegetables first before rice, store cooked rice in refrigerator overnight before consuming, add small amount of oil to rice to slow digestion - Schedule next appointment in 4 weeks f or OB check - Patient to contact [employer] [facility] in [facility] (Dr. Ny) or [facility] to explore delivery options in [place] - Await call from [place] regarding refer ral ANA CRISTINA Calculator Estimated Delivery Date Method Current WG Current Estimate 02/03/26 Ultrasound #1 26w 2d Notes Visit Date: 03/07/25 Last Updated by: Delvis Bangura MD - Glucose monitoring results: - Highest glucose readin mg/dL - Fasting glucose values: 80, 86, 100, 103 mg/dL - Target values discussed: <140 mg/dL at 1 hour post-meal, <130 mg/dL at 2 hours post-meal, fasting up to 110 mg/dL acceptable - heart rate: 172 bpm Visit Date: 12/20/24 Last Updated by: Delvis Bangura MD - Date: 11/26/2024 - Initial panel: Hepatitis B negative, Hepatitis C negative, RPR non-reactive, Rubella immune, Blood group B-positive, Antibody screen negative, Gonorrhea negative, Chlamydia negative - Urinalysis: Grossly within normal limits with 1+ protein and 1+ ketones - Genetic screening (NiPT): Negative for trisomies, consistent with male gender - Obstetric ultrasound (12/20/2024): anatomy appropriate, placenta normal appearance, amniotic fluid normal, gender male heart tones: Not documented bpm. Office Procedures OBC Clinic LOC & Office Proc's Nursing/Assessment Patient Status: Established Patient OB Clinic Nursing Assessment: Medication Reconciliation, Update PMH in EMR and Vital Signs OB Clinic Coordination of Care: Complex Care and Chronic Disease 1-5, Consent,records obtained, informed consent, Education Simp Pt/Fam, 1 Ins Authorization, Lab and Imaging orders, Results/Orders obtained and Staff clarify orders Special Needs: Heart tones Established Patient Charge Established Patient Point Assignment: 150 Established Patient Point Charge: EP Level 4 (120-155) Assessment & Plan Diagnosis / Problem List (1) Abnormal glucose complicating : Status: Acute (2) Uterine size date discrepancy, antepartum: Status: Acute (3) Maternal care for low transverse scar from previous delivery: Status: Acute Plan Problem List - Gestational diabetes mellitus Assessment 25-week patient with gestational diabetes mellitus presenting for glucose monitoring review. Patient reports highest glucose reading of 143 mg/dL, with fasting glucose levels in the 100s range (80, 86, 100, 103). Post-prandial glucose levels appear adequately controlled with dietary modifications, though fasting hyperglycemia remains elevated. heart rate documented at 172 bpm. Patient has been managing glucose levels through dietary awareness, noting correlation between rice consumption and glucose elevation. Plan - Start metformin once daily with breakfast for gestational diabetes management - Continue current glucose monitoring regimen - Implement 15-20 minute rubber press tender walks to help reduce fasting glucose levels - Follow dietary modifications: eat protein and vegetables first before rice, store cooked rice in refrigerator overnight before consuming, add small amount of oil to rice to slow digestion - Schedule next appointment in 4 weeks for OB check - Patient to contact [employer] clinic in [place] (Dr. Ny) or [facility] to explore delivery options in [place] - Await call from [place] regarding referral 1. Progress Reviewed gestational age (25 weeks), growth, and heart rate (172 bpm). Planned frequent visits (scheduled next appointment in 4 weeks). 2. Instructed patient to monitor movements and report decreases immediately. 3. Testing Counseled on routine third-trimester labs per guidelines. Discussed potential need for ultrasound or monitoring based on risk factors. 4. Preeclampsia Precaution Educated on preeclampsia signs: severe headache, vision changes, right upper quadrant pain, sudden swelling. Advised urgent reporting of symptoms and discussed blood pressure monitoring if high risk. 5. Labor Precautions Reviewed labor signs: regular contractions, pelvic pressure, back pain, bleeding, or fluid leakage. Instructed to seek immediate care for these symptoms. 6. Lifestyle and Delivery Preparation Reinforced vitamins, nutrition, and safe activity. Discussed plan, pain management, and . Advised on labor preparation (e.g., hospital bag) and expectations. 7. Psychosocial Support Assessed emotional well-being and offered resources for mental health or parenting support.
== END 2025-03-07 11:53 | disposition home or self-care (01) ==
LOC: HODSOBC 11:21
PROVIDERS: Supervising Provider Obstetrics & Gynecology; Visit Provider Obstetrics & Gynecology
DX: O09.892 Supervision of other high risk pregnancies, second trimester (principal); O24.415 Gestational diabetes mellitus in pregnancy, controlled by oral hypoglycemic drugs; O09.292 Supervision of pregnancy with other poor reproductive or obstetric history, second trimester; O34.211 Maternal care for low transverse scar from previous cesarean delivery; O26.842 Uterine size-date discrepancy, second trimester; Z3A.25 25 weeks gestation of pregnancy
CPT/HCPCS: 99214; G0463

== ENCOUNTER 2025-04-04 11:28 | Outpatient (AMB) | payer MEDICAID, SELFPAY ==
--- NOTE | 2025-04-04 11:33 | OBCLNT_ITS ---
Vital Signs 04/04/25 11:46 Height 1.57 m Height Method Stated Weight 97.636 kg Weight Measurement Method Standing Scale BMI 39.6 BP 131/79 H Blood Pressure Source Automatic Cuff Blood Pressure Location Left Upper Arm Position Sitting Respiration 18 Pulse 98 Pulse Source Monitor Temp 972 F H Temp Source Oral Pulse Oximetry (%) 98 Oxygen Delivery Method Room Air Allergies/Home Meds Allergies & Medications Allergies No Known Allergies Allergy (Verified 04/04/25 11:33) Medication Reconciliation aspirin 81 mg tablet 81 mg PO QDAY 90 days #90 tabs 01/26/25 [Rx Confirmed 04/04/25] vits no.126-ferrous fum 28 mg iron-folic acid 800 mcg tablet (Classic ) 1 tab PO QDAY 90 days #90 tabs 02/05/25 [Rx Confirmed 04/04/25] blood sugar diagnostic (Blood Glucose Test strips) #100 ea 02/26/25 [Rx Confirmed 04/04/25] blood-glucose meter #1 ea 02/26/25 [Rx Confirmed 04/04/25] lancets 21 gauge #100 ea 02/26/25 [Rx Confirmed 04/04/25] metformin 500 mg tablet 500 mg PO QDAY 90 days #90 tabs 03/13/25 [Rx Confirmed 04/04/25] Immunizations Immunizations Flu Vaccine in the Last 12 Months: No Flu Vaccine Exclusion Criteria: No Exclusion Criteria Care OB Visit Log OB Flowsheet Initial Weight: Not Recorded Date -?-?-?-?-?-?-?-?-?-?-?-?- EGA Weight BP Alb Glu CTX Pres Fundal ht FHR Mov Dilation Station Effacement Hx Notes Visit Note 12/20/24 -?-?-?-?-?-?-?-?-?-?-?-?- 14w 1d 87.203 kg 111/71 absent cephalic 155 active Patient has a history of prior delivery. Patient reports nausea and vomiting that has dialed down a bit. Denies VICK, VC, and epigastric pain. - Leo Izaguirre is a 2 para 1 fe male with a history of one prior section presenting for routine care at 14 weeks and 1 day gestation. - She reports that her nausea and vomiti ng have dialed down a bit since her last visit. - She confirms awareness that she is carrying a male fetus. - Follow up in one month for routine care - Patient will receive call from [facility] for 20-week ultrasound (due in February) - Repeat scheduled at 39 weeks , one week before due date - If water breaks: deliver at 37+ weeks; hospitalize with medications for delivery between 34-37 weeks; hospitalize until 34 weeks if rupture occurs before 34 weeks 01/26/25 -?-?-?-?-?-?-?-?-?-?-?-?- 19w 3d 92.703 kg 136/76 absent cephalic 145 active - She has a history of previous section and her last was induced for high blood pressure. - She reports experiencing morning nause a. - She has been monitoring her blood pres sure at home over the past week, with readings around 120/80. - Start baby aspirin to prevent preeclampsia - Monitor blood pressure at home and rowdy l if systolic over 140 or diastolic over 90 - Report headaches, flashes of light, or right-sided pain - Will consult with She[facility] for and continue appointments here until 37-38 weeks, then transfer - Have a glass of cold milk in the [facility] for nausea - Follow up in 2 weeks for blood pressur e check - Follow up in 4 weeks for routine OB an d MS-AFP 02/05/25 -?-?-?-?-?-?-?-?-?-?-?-?- 20w 6d 93.95 kg 126/76 absent cephalic 21 145 active presenting for blood pressure check. - Current blood pressure: 126/76 mmHg - Improved from last week's elevated r eading of 136/76 mmHg - Patient was prescribed low-dose aspiri n at previous visit - Has not yet started taking it - Patient inquired about obtaining a [place] referral - Confirms plans to attempt (Vaginal After ) Plan - Start low-dose aspirin regimen - Send prescription for aspirin to [facility] in [facility] - Follow up in 4 weeks - Return sooner if experiencing headache , bloating, or feeling uneasy - Continue with V-FARIDA plan - Patient to obtain [facility] referral form om [facility] office for completion 02/19/25 -?-?-?-?-?-?-?-?-?-?-?-?- 22w 6d 94.914 kg 111/73 absent cephalic 23 165 active - Patient is due for one-hour glucose tolerance test. - All previous screening tests, includin g AFP, have been negative. - A referral has been sent to the women' s clinic in [place] for potential transfer of care at 37 weeks gestation. - Patient has a history of previous section. - One-hour glucose tolerance test to be completed within the next 2-3 weeks - Referral sent to women's clinic in [facility] for review and establishment of care - Plan to transfer care at approximately 37 weeks gestation - Follow-up appointment scheduled in 4 w eeks - Patient to expect phone call from [facility] 03/07/25 -?-?-?-?-?-?-?-?-?-?-?-?- 25w 1d 95.028 kg 131/81 absent cephalic 25 155 active - She reports her highest glucose reading was 143 mg/dL, which occurred after eating rice. - Morning fasting glucose numbers are in the hundreds, with readings of 80, 86, and 103 mg/dL documented. - She has been monitoring her blood gluc ose levels and documenting her food intake to correlate with glucose spikes. - She notes that rice consumption causes her glucose levels to increase. - She reports eating normal foods and no t being particularly strict with her diet. - She currently eats rice 2-3 times per week, typically steamed rice. - She has not received a call from [facility] but did receive a letter from them. - Her wants her to deliver in [facility] due to proximity, but she reports difficulty finding accepting providers in that area. Plan - Start metformin once daily with breakf ast for gestational diabetes management - Continue current glucose monitoring re [facility] - Implement 15-20 minute cyber instructor w alks to help reduce fasting glucose levels - Follow dietary modifications: eat prot ein and vegetables first before rice, st ore cooked rice in refrigerator overnight before consuming, add small amount of oil to rice to slow digestion - Schedule next appointment in 4 weeks f or OB check - Patient to contact [place] [facility] in [facility] (Dr. Ny) or [facility] to explore delivery options in [place] - Await call from [place] regarding refer ral 04/04/25 -?-?-?-?-?-?-?-?-?-?-?-?- 29w 1d 97.636 kg 131/79 absent cephalic 30 162 active - She has gestational diabetes and was previously prescribed metformin but discontinued the medication and is managing with diet alone. - Blood sugar control has been good with morning values in the 70s-80s and post- meal values not exceeding 150 mg/dL. - She has been walking frequently which she reports helps with glucose control. - Baby is active and she reports normal movement. - She has established care at [place] for delivery planning and was told to transition there at 38 weeks for (vaginal after ) monitoring. - She is considering delivery options an d leaning toward scheduling an elective section rather than attempting . - She has an upcoming ultrasound scheduled for April 24. - Continue current diet management for gestational diabetes without metformin - Transfer care to [place] at 38 weeks ge station for vs repeat delivery management - Obtain routine laboratory studies incl uding anemia check, RPR, and A1C - Schedule anatomy ultrasound for [facility] er to assess anatomy, C- section scar, and placenta - Follow up in 2 weeks ANA CRISTINA Calculator Estimated Delivery Date Method Current WG Current Estimate 06/19/25 Ultrasound #1 29w 1d Notes Visit Date: 03/07/25 Last Updated by: Delvis Bangura MD - Glucose monitoring results: - Highest glucose readin mg/dL - Fasting glucose values: 80, 86, 100, 103 mg/dL - Target values discussed: <140 mg/dL at 1 hour post-meal, <130 mg/dL at 2 hours post-meal, fasting up to 110 mg/dL acceptable - heart rate: 172 bpm Visit Date: 12/20/24 Last Updated by: Delvis Bangura MD - Date: 11/26/2024 - Initial panel: Hepatitis B negative, Hepatitis C negative, RPR non-reactive, Rubella immune, Blood group B-positive, Antibody screen negative, Gonorrhea negative, Chlamydia negative - Urinalysis: Grossly within normal limits with 1+ protein and 1+ ketones - Genetic screening (NiPT): Negative for trisomies, consistent with male gender - Obstetric ultrasound (12/20/2024): anatomy appropriate, placenta normal appearance, amniotic fluid normal, gender male heart tones: Not documented bpm. Office Procedures OBC Clinic LOC & Office Proc's Nursing/Assessment Patient Status: Established Patient OB Clinic Nursing Assessment: Medication Reconciliation, Update PMH in EMR and Vital Signs OB Clinic Coordination of Care: Consent,records obtained, informed consent, Education Simp Pt/Fam, Lab and Imaging orders, Results/Orders obtained and Staff clarify orders Special Needs: Heart tones Established Patient Charge Established Patient Point Assignment: 110 Established Patient Point Charge: EP Level 3 (80-115) Assessment & Plan Diagnosis / Problem List (1) Abnormal glucose complicating : Status: Acute (2) Uterine size date discrepancy, antepartum: Status: Acute Plan Problem List - Gestational diabetes mellitus - at 29 weeks and 1 day gestation - History of delivery Assessment 29-week and 1-day patient with gestational diabetes currently managed with diet alone, having discontinued metformin. Blood glucose levels are well- controlled with morning values in the 70s-80s and post-prandial values not exceeding 150 mg/dL. Patient has history of prior delivery and is being followed for versus repeat delivery consideration. heart rate is normal at 160-162 bpm with active movement reported. Patient has upcoming ultrasound scheduled for April 24 to evaluate anatomy and assess scar and placental location. Plan - Continue current diet management for gestational diabetes without metformin - Transfer care to [place] at 38 weeks gestation for vs repeat delivery management - Obtain routine laboratory studies including anemia check, RPR, and A1C - Schedule anatomy ultrasound for April 24 to assess anatomy, C- section scar, and placenta - Follow up in 2 weeks 1. Progress Reviewed gestational age at 29 weeks and 1 day, growth, and heart rate at 160-162 bpm which is normal. Planned frequent visits (every 2 weeks until 36 weeks, then weekly). 2. Instructed patient to monitor movements and report decreases immediately. 3. Testing Counseled on routine third-trimester labs per guidelines including anemia check, RPR, and A1C. Discussed potential need for ultrasound or monitoring based on risk factors including anatomy scan and evaluation of scar and placenta. 4. Preeclampsia Precaution Educated on preeclampsia signs: severe headache, vision changes, right upper quadrant pain, sudden swelling. Advised urgent reporting of symptoms and discussed blood pressure monitoring if high risk. 5. Labor Precautions Reviewed labor signs: regular contractions, pelvic pressure, back pain, bleeding, or fluid leakage. Instructed to seek immediate care for these symptoms. 6. Lifestyle and Delivery Preparation Reinforced vitamins, nutrition, and safe activity including walking for gestational diabetes management. Discussed plan including versus repeat options, pain management, and . Advised on labor preparation and expectations with plan to transfer care to [place] at 38 weeks. 7. Psychosocial Support Assessed emotional well-being regarding delivery options and offered resources for mental health or parenting support.
[2025-04-04 11:46] VITALS: BP 131/79; PULSE 98; RESP 18; TEMP 522.2; TEMP 972; O2SAT 98; BMI 39.6
== END 2025-04-04 11:49 | disposition home or self-care (01) ==
LOC: HODSOBC 11:28
PROVIDERS: Supervising Provider Obstetrics & Gynecology; Visit Provider Obstetrics & Gynecology
DX: O09.893 Supervision of other high risk pregnancies, third trimester (principal); O26.842 Uterine size-date discrepancy, second trimester; O24.410 Gestational diabetes mellitus in pregnancy, diet controlled; O09.293 Supervision of pregnancy with other poor reproductive or obstetric history, third trimester; O34.219 Maternal care for unspecified type scar from previous cesarean delivery; Z3A.29 29 weeks gestation of pregnancy
CPT/HCPCS: 99213; G0463

== ENCOUNTER 2025-04-20 11:27 | Outpatient (AMB) | payer MEDICAID, SELFPAY ==
--- NOTE | 2025-04-20 11:41 | OBCLNT_ITS ---
Vital Signs 04/20/25 11:43 Height 1.57 m Height Method Stated Weight 98.43 kg Weight Measurement Method Standing Scale BMI 39.9 BP 126/77 Blood Pressure Source Automatic Cuff Blood Pressure Location Right Upper Arm Position Sitting Respiration 18 Pulse 91 Pulse Source Monitor Temp 98.0 F Temp Source Temporal Artery Scan Pulse Oximetry (%) 97 Oxygen Delivery Method Room Air Allergies/Home Meds Allergies & Medications Allergies No Known Allergies Allergy (Verified 04/20/25 11:44) Medication Reconciliation aspirin 81 mg tablet 81 mg PO QDAY 90 days #90 tabs 01/26/25 [Rx Confirmed 10/08] vits no.126-ferrous fum 28 mg iron-folic acid 800 mcg tablet (Classic ) 1 tab PO QDAY 90 days #90 tabs 02/05/25 [Rx Confirmed 04/20/25] blood sugar diagnostic (Blood Glucose Test strips) #100 ea 02/26/25 [Rx Confirmed 04/20/25] blood-glucose meter #1 ea 02/26/25 [Rx Confirmed 04/20/25] lancets 21 gauge #100 ea 02/26/25 [Rx Confirmed 04/20/25] metformin 500 mg tablet 500 mg PO QDAY 90 days #90 tabs 03/13/25 [Rx Confirmed 04/20/25] Immunizations Immunizations Flu Vaccine in the Last 12 Months: No Flu Vaccine Exclusion Criteria: No Exclusion Criteria Care OB Visit Log OB Flowsheet Initial Weight: Not Recorded Date -?-?-?-?-?-?-?-?-?-?-?-?- EGA Weight BP Alb Glu CTX Pres Fundal ht FHR Mov Dilation Station Effacement Hx Notes Visit Note 12/20/24 -?-?-?-?-?-?-?-?-?-?-?-?- 14w 1d 87.203 kg 111/71 absent cephalic 155 active Patient has a history of prior delivery. Patient reports nausea and vomiting that has dialed down a bit. Denies VICK, VC, and epigastric pain. - Leo Izaguirre is a 2 para 1 fe male with a history of one prior section presenting for routine care at 14 weeks and 1 day gestation. - She reports that her nausea and vomiti ng have dialed down a bit since her last visit. - She confirms awareness that she is carrying a male fetus. - Follow up in one month for routine care - Patient will receive call from [facility] for 20-week ultrasound (due in February) - Repeat scheduled at 39 weeks , one week before due date - If water breaks: deliver at 37+ weeks; hospitalize with medications for delivery between 34-37 weeks; hospitalize until 34 weeks if rupture occurs before 34 weeks 01/26/25 -?-?-?-?-?-?-?-?-?-?-?-?- 19w 3d 92.703 kg 136/76 absent cephalic 145 active - She has a history of previous section and her last was induced for high blood pressure. - She reports experiencing morning nause a. - She has been monitoring her blood pres sure at home over the past week, with readings around 120/80. - Start baby aspirin to prevent preeclampsia - Monitor blood pressure at home and rowdy l if systolic over 140 or diastolic over 90 - Report headaches, flashes of light, or right-sided pain - Will consult with [facility] for and continue appointments here until 37-38 weeks, then transfer - [facility] a glass of cold milk in the [facility] for nausea - Follow up in 2 weeks for blood pressur e check - Follow up in 4 weeks for routine OB an d MS-AFP 02/05/25 -?-?-?-?-?-?-?-?-?-?-?-?- 20w 6d 93.95 kg 126/76 absent cephalic 21 145 active presenting for blood pressure check. - Current blood pressure: 126/76 mmHg - Improved from last week's elevated r eading of 136/76 mmHg - Patient was prescribed low-dose aspiri n at previous visit - Has not yet started taking it - Patient inquired about obtaining a [place] referral - Confirms plans to attempt (Vaginal After ) Plan - Start low-dose aspirin regimen - Send prescription for aspirin to [facility] in [facility] - Follow up in 4 weeks - Return sooner if experiencing headache , bloating, or feeling uneasy - Continue with V-FARIDA plan - Patient to obtain [facility] referral form om [facility] office for completion 02/19/25 -?-?-?-?-?-?-?-?-?-?-?-?- 22w 6d 94.914 kg 111/73 absent cephalic 23 165 active - Patient is due for one-hour glucose tolerance test. - All previous screening tests, includin g AFP, have been negative. - A referral has been sent to the women' s clinic in [place] for potential germain sfer of care at 37 weeks gestation. - Patient has a history of previous section. - One-hour glucose tolerance test to be completed within the next 2-3 weeks - Referral sent to women's clinic in [facility] for review and establishment of care - Plan to transfer care at approximately 37 weeks gestation - Follow-up appointment scheduled in 4 w eeks - Patient to expect phone call from [facility] 03/07/25 -?-?-?-?-?-?-?-?-?-?-?-?- 25w 1d 95.028 kg 131/81 absent cephalic 25 155 active - She reports her highest glucose reading was 143 mg/dL, which occurred after eating rice. - Morning fasting glucose numbers are in the hundreds, with readings of 80, 86, and 103 mg/dL documented. - She has been monitoring her blood gluc ose levels and documenting her food intake to correlate with glucose spikes. - She notes that rice consumption causes her glucose levels to increase. - She reports eating normal foods and no t being particularly strict with her diet. - She currently eats rice 2-3 times per week, typically steamed rice. - She has not received a call from [facility] but did receive a letter from them. - Her wants her to deliver in [facility] due to proximity, but she reports difficulty finding accepting providers in that area. Plan - Start metformin once daily with breakf ast for gestational diabetes management - Continue current glucose monitoring re [facility] - Implement 15-20 minute carpet mechanic w alks to help reduce fasting glucose levels - Follow dietary modifications: eat prot ein and vegetables first before rice, store cooked rice in refrigerator overnight before consuming, add small amount of oil to rice to slow digestion - Schedule next appointment in 4 weeks f or OB check - Patient to contact [facility] in [facility] (Dr. Ny) or [facility] to explore delivery options in [place] - Await call from [place] regarding refer ral 04/04/25 -?-?-?-?-?-?-?-?-?-?-?-?- 29w 1d 97.636 kg 131/79 absent cephalic 30 162 active - She has gestational diabetes and was previously prescribed metformin but discontinued the medication and is managing with diet alone. - Blood sugar control has been good with morning values in the 70s-80s and post- meal values not exceeding 150 mg/dL. - She has been walking frequently which she reports helps with glucose control. - Baby is active and she reports normal movement. - She has established care at [place] for delivery planning and was told to transition there at 38 weeks for (vaginal after ) monitoring. - She is considering delivery options an d leaning toward scheduling an elective section rather than attempting . - She has an upcoming ultrasound scheduled for April 24. - Continue current diet management for gestational diabetes without metformin - Transfer care to [place] at 38 weeks ge station for vs repeat delivery management - Obtain routine laboratory studies incl uding anemia check, RPR, and A1C - Schedule anatomy ultrasound for [facility] er to assess anatomy, C- section scar, and placenta - Follow up in 2 weeks 04/20/25 -?-?-?-?-?-?-?-?-?-?-?-?- 31w 3d 98.43 kg 126/77 absent cephalic 32 155 active - Patient is scheduled for repeat section on June 12, 2025 at 39 weeks and 0 days gestation. - Due date is June 19, 2025 - [facility] at 7:30 AM - Patient reports baby is very active. - Patient reports occasional elevated bl ood sugars on some days. - Blood sugars reached 150-160 on one day, likely around due to increased food intake - Blood sugars returned to normal leve ls after the holiday - Patient has history of abnormal pap smear test years ago. - Scheduled repeat section on June 12, 2025 at 7:30 AM at 39 weeks 0 days gestation - CBC and A1C laboratory tests to be com pleted 2 weeks prior to next appointment - Pap smear to be performed at 6-week po stpartum visit - Follow-up appointment in 2 weeks ANA CRISTINA Calculator Estimated Delivery Date Method Current WG Current Estimate 06/19/25 Ultrasound #1 31w 5d Notes Visit Date: 03/07/25 Last Updated by: Delvis Bangura MD - Glucose monitoring results: - Highest glucose readin mg/dL - Fasting glucose values: 80, 86, 100, 103 mg/dL - Target values discussed: <140 mg/dL at 1 hour post-meal, <130 mg/dL at 2 hours post-meal, fasting up to 110 mg/dL acceptable - heart rate: 172 bpm Visit Date: 12/20/24 Last Updated by: Delvis Bangura MD - Date: 11/26/2024 - Initial panel: Hepatitis B negative, Hepatitis C negative, RPR non-reactive, Rubella immune, Blood group B-positive, Antibody screen negative, Gonorrhea negative, Chlamydia negative - Urinalysis: Grossly within normal limits with 1+ protein and 1+ ketones - Genetic screening (NiPT): Negative for trisomies, consistent with male gender - Obstetric ultrasound (12/20/2024): anatomy appropriate, placenta normal appearance, amniotic fluid normal, gender male heart tones: Not documented bpm. Office Procedures [facility] LOC & Office Proc's Nursing/Assessment Patient Status: Established Patient OB Clinic Nursing Assessment: Medication Reconciliation, Update PMH in EMR and Vital Signs OB Clinic Coordination of Care: Complex Care and Chronic Disease 1-5, Education Complex Pt/Fam, Consent,records obtained, informed consent, Lab and Imaging orders, Results/Orders obtained and Staff clarify orders Special Needs: Heart tones Established Patient Charge Established Patient Point Assignment: 140 Established Patient Point Charge: EP Level 4 (120-155) Assessment & Plan Diagnosis / Problem List (1) Abnormal glucose complicating : Status: Acute (2) Uterine size date discrepancy, antepartum: Status: Acute (3) Maternal care for low transverse scar from previous delivery: Status: Acute Plan Problem List - , second trimester - Previous delivery - Gestational diabetes mellitus - Abnormal cervical cytology Assessment at 31+3 weeks gestation with previous section, scheduled for repeat delivery at 39+0 weeks on June 12, 2019. Patient reports very active movement. Blood pressure 164 mmHg noted during visit. Patient has gestational diabetes with occasional elevated glucose readings reaching 150- 160 mg/dL on holiday, which subsequently normalized. History of abnormal Pap smear years ago at previous location. Plan - Scheduled repeat section on June 12, 2025 at 7:30 AM at 39 weeks 0 days gestation - CBC and A1C laboratory tests to be completed 2 weeks prior to next appointment - Pap smear to be performed at 6-week visit - Follow-up appointment in 2 weeks 1. Progress Reviewed gestational age at 39 weeks, growth, and heart rate of 164 (normal). Patient reports baby is very active. Planned repeat section scheduled for June 12, 2019 at 7:30 AM (39 weeks 0 days gestation, one week before due date of June 19). 2. Instructed patient to monitor movements and report decreases immediately. 3. Testing Counseled on routine third-trimester labs per guidelines. Ordered CBC and A1C to be done 2 weeks prior to next appointment. 4. Preeclampsia Precaution Educated on preeclampsia signs: severe headache, vision changes, right upper quadrant pain, sudden swelling. Advised urgent reporting of symptoms and discussed blood pressure monitoring if high risk. 5. Labor Precautions Reviewed labor signs: regular contractions, pelvic pressure, back pain, bleeding, or fluid leakage. Instructed to seek immediate care for these symptoms. 6. Lifestyle and Delivery Preparation Reinforced vitamins, nutrition, and safe activity. Discussed blood sugar management - patient reports occasional elevated readings (150-160) on holidays which is acceptable. Counseled that scheduled delivery provides different experience compared to labor. 7. Psychosocial Support Assessed emotional well-being. Discussed previous abnormal pap smear history and planned repeat pap smear 6 weeks after inflammation resolves. Reassured patient that abnormal paps before age 30 are generally not serious.
[2025-04-20 11:43] VITALS: BP 126/77; PULSE 91; RESP 18; TEMP 36.7; O2SAT 97; BMI 39.9
== END 2025-04-20 12:01 | disposition home or self-care (01) ==
PROVIDERS: Supervising Provider Obstetrics & Gynecology; Visit Provider Obstetrics & Gynecology
DX: O09.293 Supervision of pregnancy with other poor reproductive or obstetric history, third trimester (principal); O34.211 Maternal care for low transverse scar from previous cesarean delivery; O09.893 Supervision of other high risk pregnancies, third trimester; O26.843 Uterine size-date discrepancy, third trimester; O24.410 Gestational diabetes mellitus in pregnancy, diet controlled; Z3A.31 31 weeks gestation of pregnancy
CPT/HCPCS: 99214; G0463

== ENCOUNTER 2025-04-24 14:55 | Observation (INO) | payer SELFPAY ==
[2025-04-24] VITALS (11 sets, daily range): BP systolic 133–140; BP diastolic 73–79; PULSE 87–103; RESP 14–98; TEMP 36.6; O2SAT 96–98; BMI 49.6
--- NOTE | 2025-04-24 15:30 | XR_ITS ---
Examination: Biophysical profile, ultrasound Date and time of exam: April 24, 2025, 1550 hours INDICATIONS: Biophysical 6 of [address] doctor's office today, no breathing motion, diagnosis maternal hypertension Technique: Multiple transabdominal sonographic images of the pelvis abdomen obtained. Attention is directed to the breathing movement, gross body movement, amniotic fluid volume and tone. Findings: Amniotic fluid index 23.2 cm Total biophysical profile is 8 of 8. breathing movement is 2. Gross body movement is 2. tone is 2. Qualitative amniotic fluid volume is 2 Impression: Biophysical profile is 8 of 8.
== END 2025-04-24 16:50 | disposition home or self-care (01) ==
PROVIDERS: Admitting Provider Obstetrics & Gynecology; Visit Provider Obstetrics & Gynecology
DX: O24.419 Gestational diabetes mellitus in pregnancy, unspecified control (principal); O13.3 Gestational [pregnancy-induced] hypertension without significant proteinuria, third trimester; Z3A.32 32 weeks gestation of pregnancy
CPT/HCPCS: 59025; 59899; 76819

== ENCOUNTER 2025-05-04 10:22 | Outpatient (AMB) | payer MEDICAID, SELFPAY ==
--- NOTE | 2025-05-04 10:29 | OBCLNT_ITS ---
Vital Signs 05/04/25 10:34 Height 1.57 m Height Method Stated Weight 95.708 kg Weight Measurement Method Standing Scale BMI 38.8 BP 119/83 Blood Pressure Source Automatic Cuff Blood Pressure Location Left Upper Arm Position Sitting Respiration 16 Pulse 96 Pulse Source Monitor Temp 98.1 F Temp Source Oral Pulse Oximetry (%) 98 Oxygen Delivery Method Room Air Allergies/Home Meds Allergies & Medications Allergies No Known Allergies Allergy (Verified 05/15/25 13:39) Medication Reconciliation aspirin 81 mg tablet 81 mg PO QDAY 90 days #90 tabs 01/26/25 [Rx Confirmed 05/15/25] vits no.126-ferrous fum 28 mg iron-folic acid 800 mcg tablet (Classic ) 1 tab PO QDAY 90 days #90 tabs 02/05/25 [Rx Confirmed 05/15/25] blood sugar diagnostic (Blood Glucose Test strips) #100 ea 02/26/25 [Rx Confirmed 05/15/25] blood-glucose meter #1 ea 02/26/25 [Rx Confirmed 05/15/25] lancets 21 gauge #100 ea 02/26/25 [Rx Confirmed 05/15/25] metformin 500 mg tablet 500 mg PO QDAY 90 days #90 tabs 03/13/25 [Rx Confirmed 05/15/25] Immunizations Immunizations Flu Vaccine in the Last 12 Months: Yes Flu Vaccine Exclusion Criteria: Already Received Care OB Visit Log OB Flowsheet Initial Weight: Not Recorded Date -?-?-?-?-?-?-?-?-?-?-?-?- EGA Weight BP Alb Glu CTX Pres Fundal ht FHR Mov Dilation Station Effacement Hx Notes Visit Note 12/20/24 -?-?-?-?-?-?-?-?-?-?-?-?- 14w 1d 87.203 kg 111/71 absent cephalic 155 active Patient has a history of prior delivery. Patient reports nausea and vomiting that has dialed down a bit. Denies VICK, VC, and epigastric pain. - Leo Izaguirre is a 2 para 1 fe male with a history of one prior section presenting for routine care at 14 weeks and 1 day gestation. - She reports that her nausea and vomiti ng have dialed down a bit since her last visit. - She confirms awareness that she is carrying a male fetus. - Follow up in one month for routine care - Patient will receive call from [facility] for 20-week ultrasound (due in February) - Repeat scheduled at 39 weeks , one week before due date - If water breaks: deliver at 37+ weeks; hospitalize with medications for delivery between 34-37 weeks; hospitalize until 34 weeks if rupture occurs before 34 weeks 01/26/25 -?-?-?-?-?-?-?-?-?-?-?-?- 19w 3d 92.703 kg 136/76 absent cephalic 145 active - She has a history of previous section and her last was induced for high blood pressure. - She reports experiencing morning nause a. - She has been monitoring her blood pres sure at home over the past week, with readings around 120/80. - Start baby aspirin to prevent preeclampsia - Monitor blood pressure at home and rowdy l if systolic over 140 or diastolic over 90 - Report headaches, flashes of light, or right-sided pain - Will consult with [facility] for and continue appointments here until 37-38 weeks, then transfer - Have a glass of cold milk in the [facility] for nausea - Follow up in 2 weeks for blood pressur e check - Follow up in 4 weeks for routine OB an d MS-AFP 02/05/25 -?-?-?-?-?-?-?-?-?-?-?-?- 20w 6d 93.95 kg 126/76 absent cephalic 21 145 active presenting for blood pressure check. - Current blood pressure: 126/76 mmHg - Improved from last week's elevated r eading of 136/76 mmHg - Patient was prescribed low-dose aspiri n at previous visit - Has not yet started taking it - Patient inquired about obtaining a [facility] referral - Confirms plans to attempt (Vaginal After ) Plan - Start low-dose aspirin regimen - Send prescription for aspirin to [facility] in [facility] - Follow up in 4 weeks - Return sooner if experiencing headache , bloating, or feeling uneasy - Continue with V-FARIDA plan - Patient to obtain [facility] referral form om [facility] office for completion 02/19/25 -?-?-?-?-?-?-?-?-?-?-?-?- 22w 6d 94.914 kg 111/73 absent cephalic 23 165 active - Patient is due for one-hour glucose tolerance test. - All previous screening tests, includin g AFP, have been negative. - A referral has been sent to the women' s clinic in [place] for potential transfer of care at 37 weeks gestation. - Patient has a history of previous section. - One-hour glucose tolerance test to be completed within the next 2-3 weeks - Referral sent to women's clinic in [facility] for review and establishment of care - Plan to transfer care at approximately 37 weeks gestation - Follow-up appointment scheduled in 4 w eeks - Patient to expect phone call from bsasem salmon 03/07/25 -?-?-?-?-?-?-?-?-?-?-?-?- 25w 1d 95.028 kg 131/81 absent cephalic 25 155 active - She reports her highest glucose reading was 143 mg/dL, which occurred after eating rice. - Morning fasting glucose numbers are in the hundreds, with readings of 80, 86, and 103 mg/dL documented. - She has been monitoring her blood gluc ose levels and documenting her food intake to correlate with glucose spikes. - She notes that rice consumption causes her glucose levels to increase. - She reports eating normal foods and no t being particularly strict with her diet. - She currently eats rice 2-3 times per week, typically steamed rice. - She has not received a call from [facility] but did receive a letter from them. - Her wants her to deliver in [facility] due to proximity, but she reports difficulty finding accepting providers in that area. Plan - Start metformin once daily with breakf ast for gestational diabetes management - Continue current glucose monitoring re [facility] - Implement 15-20 minute paper control clerk w alks to help reduce fasting glucose levels - Follow dietary modifications: eat prot ein and vegetables first before rice, store cooked rice in refrigerator overnight before consuming, add small amount of oil to rice to slow digestion - Schedule next appointment in 4 weeks f or OB check - Patient to contact [facility] in [facility] (Dr. Ny) or [facility] to explore delivery options in [place] - Await call from [place] regarding refer ral 04/04/25 -?-?-?-?-?-?-?-?-?-?-?-?- 29w 1d 97.636 kg 131/79 absent cephalic 30 162 active - She has gestational diabetes and was previously prescribed metformin but discontinued the medication and is managing with diet alone. - Blood sugar control has been good with morning values in the 70s-80s and post- meal values not exceeding 150 mg/dL. - She has been walking frequently which she reports helps with glucose control. - Baby is active and she reports normal movement. - She has established care at [place] for delivery planning and was told to transition there at 38 weeks for (vaginal after ) monitoring. - She is considering delivery options an d leaning toward scheduling an elective section rather than attempting . - She has an upcoming ultrasound scheduled for April 24. - Continue current diet management for gestational diabetes without metformin - Transfer care to [place] at 38 weeks ge station for vs repeat delivery management - Obtain routine laboratory studies incl uding anemia check, RPR, and A1C - Schedule anatomy ultrasound for [facility] er to assess anatomy, C- section scar, and placenta - Follow up in 2 weeks 04/20/25 -?-?-?-?-?-?-?-?-?-?-?-?- 31w 3d 98.43 kg 126/77 absent cephalic 32 155 active - Patient is scheduled for repeat section on June 12, 2025 at 39 weeks and 0 days gestation. - Due date is June 19, 2025 - section scheduled for [facility] Jun 12 at 7:30 AM - Patient reports baby is very active. - Patient reports occasional elevated bl ood sugars on some days. - Blood sugars reached 150-160 on one day, likely around due to increased food intake - Blood sugars returned to normal leve ls after the holiday - Patient has history of abnormal pap smear test years ago. - Scheduled repeat section on June 12, 2025 at 7:30 AM at 39 weeks 0 days gestation - CBC and A1C laboratory tests to be com pleted 2 weeks prior to next appointment - Pap smear to be performed at 6-week po stpartum visit - Follow-up appointment in 2 weeks 05/04/25 -?-?-?-?-?-?-?-?-?-?-?-?- 33w 3d 95.708 kg 119/83 absent cephalic 34 145 active - She is scheduled for repeat section on June 12 at 39 weeks. - Patient reports starting metformin as prescribed and notes improvement in fasting blood sugar levels. - Fasting numbers decreased by approxi mately 6 points and are now averaging 89-90 mg/dL - Post-meal blood sugars are around 12 0 mg/dL - Denies fasting levels above 100-110 mg/dL - Patient had elevated blood pressure du ring her M appointment and was sent to labor and delivery for triage. - Reports baby is active. - Patient inquires about anesthesia cons ultations and dietary restrictions between meals. - Continue metfo rmin for gestational diabetes management - Monitor blood glucose levels with targ ets: fasting <110 mg/dL, 1-hour postprandial <140 mg/dL, 2-hour postprandial <130 mg/dL - Skip metformin dose if blood glucose d rops below 70 mg/dL - Maintain consistent meal portions and avoid sweets - Schedule weekly anesthesia consultatio ns due to medication use - Repeat section scheduled for June 12 at 39 weeks gestation - Follow-up appointment in 2 weeks, then transition to weekly visits - Healthy snack options recommended betw een meals (string cheese, salad, crackers, non-sweet fruits) 05/15/25 -?-?-?-?-?-?-?-?-?-?-?-?- 35w 0d 98.089 kg 123/85 absent cephalic 35 145 active - Patient reports her blood sugar levels are holding up okay. - She describes the baby as very active. - Patient inquires about sensitivity in her scar, describing it as feeling bumpy. - She is scheduled for repeat at 39 weeks on June 12. - Patient reports the scar sensitivity m ay have been more noticeable last night, questioning if it's related to her growing size. - Repeat section scheduled for 39 weeks on June 12 - Follow-up appointment in 2 weeks - Ultrasound after next appointment to [facility] current weight measurement - GBS culture performed - NST (non-stress test) to be scheduled for monitoring with 20-minute strip and ultrasound - Apply aloe vera cream for sca r sensitivity due to stretching - Continue frequent ultrasound monitorin g due to high-risk status ANA CRISTINA Calculator Estimated Delivery Date Method Current WG Current Estimate 06/19/25 Ultrasound #1 35w 0d Notes Visit Date: 05/04/25 Last Updated by: Delvis Bangura MD - Date: 05/01 (triage visit) - Hemoglobin: 12.7 g/dL - Platelet count: 284 Visit Date: 03/07/25 Last Updated by: Delvis Bangura MD - Glucose monitoring results: - Highest glucose readin mg/dL - Fasting glucose values: 80, 86, 100, 103 mg/dL - Target values discussed: <140 mg/dL at 1 hour post-meal, <130 mg/dL at 2 hours post-meal, fasting up to 110 mg/dL acceptable - heart rate: 172 bpm Visit Date: 12/20/24 Last Updated by: Delvis Bangura MD - Date: 11/26/2024 - Initial panel: Hepatitis B negative, Hepatitis C negative, RPR non-reactive, Rubella immune, Blood group B-positive, Antibody screen negative, Gonorrhea negative, Chlamydia negative - Urinalysis: Grossly within normal limits with 1+ protein and 1+ ketones - Genetic screening (NiPT): Negative for trisomies, consistent with male gender - Obstetric ultrasound (12/20/2024): anatomy appropriate, placenta normal appearance, amniotic fluid normal, gender male heart tones: Not documented bpm. Office Procedures [facility] LOC & Office Proc's Nursing/Assessment Patient Status: Established Patient OB Clinic Nursing Assessment: Medication Reconciliation, Update PMH in EMR and Vital Signs OB Clinic Coordination of Care: Complex Care and Chronic Disease 1-5, Consent,records obtained, informed consent, Education Simp Pt/Fam, 1 Ins Authorization, Lab and Imaging orders, Results/Orders obtained and Staff clarify orders Special Needs: Heart tones Established Patient Charge Established Patient Point Assignment: 150 Established Patient Point Charge: EP Level 4 (120-155) Assessment & Plan Diagnosis / Problem List (1) Abnormal glucose complicating : Status: Acute (2) Uterine size date discrepancy, antepartum: Status: Acute (3) Maternal care for low transverse scar from previous delivery: Status: Acute Plan Problem List - Gestational diabetes mellitus - Elevated blood pressure in - Macrosomia Assessment 33-week 3-day patient with gestational diabetes mellitus currently managed with metformin, showing improved glycemic control with fasting glucose levels of 89-90 mg/dL and postprandial levels around 120 mg/dL. Recent laboratory results demonstrate hemoglobin A1c of 5.5%, hemoglobin of 12.7 g/dL, and platelet count of 284,000/?L. Patient experienced elevated blood pressure during maternal- medicine appointment requiring labor and delivery triage evaluation. growth concerns noted by [facility] specialist regarding macrosomia. Patient scheduled for repeat section at 39 weeks gestation. Plan - Continue metformin for gestational diabetes management - Monitor blood glucose levels with targets: fasting <110 mg/dL, 1-hour postprandial <140 mg/dL, 2-hour postprandial <130 mg/dL - Skip metformin dose if blood glucose drops below 70 mg/dL - Maintain consistent meal portions and avoid sweets - Schedule weekly anesthesia consultations due to medication use - Repeat section scheduled for June 12 at 39 weeks gestation - Follow-up appointment in 2 weeks, then transition to weekly visits - Healthy snack options recommended between meals (string cheese, salad, crackers, non-sweet fruits) 1. Progress Reviewed gestational age at 33 weeks 3 days, growth concerns noted by MFM due to large baby size, and heart rate. Patient reports active movement. Planned frequent visits (every 2 weeks until 36 weeks, then weekly). Repeat section scheduled for June 12 at 39 weeks. 2. Instructed patient to monitor movements and report decreases immediately. 3. Testing Recent labs reviewed showing A1c of 5.5, hemoglobin 12.7, platelet count 284, negative syphilis screen. Anesthesia consultations scheduled weekly due to GDM medication management. 4. Preeclampsia Precaution Patient had elevated blood pressure during MFM appointment requiring labor and delivery triage evaluation. 5. Labor Precautions Reviewed labor signs: regular contractions, pelvic pressure, back pain, bleeding, or fluid leakage. Instructed to seek immediate care for these symptoms. 6. Lifestyle and Delivery Preparation Patient prescribed metformin for GDM with good glucose control (fasting 89-90, postprandial 120). Counseled on glucose targets: fasting <110, 1-hour postprandi al <140, 2-hour postprandial <130. Instructed on consistent meal portions, healthy snacking options, avoiding sweets, and skipping metformin if glucose drops below 70. delivery planned for June 12. 7. Psychosocial Support Assessed emotional well-being and offered resources for mental health or parenting support.
[2025-05-04 10:34] VITALS: BP 119/83; PULSE 96; RESP 16; TEMP 36.7; O2SAT 98; BMI 38.8
== END 2025-05-04 10:53 | disposition home or self-care (01) ==
LOC: HODSOBC 10:22
PROVIDERS: Supervising Provider Obstetrics & Gynecology; Visit Provider Obstetrics & Gynecology
DX: O09.293 Supervision of pregnancy with other poor reproductive or obstetric history, third trimester (principal); O34.211 Maternal care for low transverse scar from previous cesarean delivery; O09.893 Supervision of other high risk pregnancies, third trimester; O26.843 Uterine size-date discrepancy, third trimester; O24.415 Gestational diabetes mellitus in pregnancy, controlled by oral hypoglycemic drugs; O99.891 Other specified diseases and conditions complicating pregnancy; R03.0 Elevated blood-pressure reading, without diagnosis of hypertension; Z3A.33 33 weeks gestation of pregnancy
CPT/HCPCS: 99214; G0463

== ENCOUNTER 2025-05-15 13:05 | Outpatient (AMB) | payer MEDICAID, SELFPAY ==
[2025-05-15 13:39] VITALS: BP 123/85; PULSE 90; RESP 18; TEMP 36.5; O2SAT 98; BMI 39.8
--- NOTE | 2025-05-15 13:39 | OBCLNT_ITS ---
Vital Signs 05/15/25 13:39 Height 1.57 m Height Method Stated Weight 98.089 kg Weight Measurement Method Standing Scale BMI 39.8 BP 123/85 H Blood Pressure Source Automatic Cuff Blood Pressure Location Left Upper Arm Position Sitting Respiration 18 Pulse 90 Pulse Source Monitor Temp 97.7 F Temp Source Oral Pulse Oximetry (%) 98 Oxygen Delivery Method Room Air Allergies/Home Meds Allergies & Medications Allergies No Known Allergies Allergy (Verified 05/15/25 13:39) Medication Reconciliation aspirin 81 mg tablet 81 mg PO QDAY 90 days #90 tabs 01/26/25 [Rx Confirmed 05/15/25] vits no.126-ferrous fum 28 mg iron-folic acid 800 mcg tablet (Classic ) 1 tab PO QDAY 90 days #90 tabs 02/05/25 [Rx Confirmed 05/15/25] blood sugar diagnostic (Blood Glucose Test strips) #100 ea 02/26/25 [Rx Confirmed 05/15/25] blood-glucose meter #1 ea 02/26/25 [Rx Confirmed 05/15/25] lancets 21 gauge #100 ea 02/26/25 [Rx Confirmed 05/15/25] metformin 500 mg tablet 500 mg PO QDAY 90 days #90 tabs 03/13/25 [Rx Confirmed 05/15/25] Immunizations Immunizations Flu Vaccine in the Last 12 Months: No Flu Vaccine Exclusion Criteria: Refused by Patient Care OB Visit Log OB Flowsheet Initial Weight: Not Recorded Date -?-?-?-?-?-?-?-?-?-?-?-?- EGA Weight BP Alb Glu CTX Pres Fundal ht FHR Mov Dilation Station Effacement Hx Notes Visit Note 12/20/24 -?-?-?-?-?-?-?-?-?-?-?-?- 14w 1d 87.203 kg 111/71 absent cephalic 155 active Patient has a history of prior delivery. Patient reports nausea and vomiting that has dialed down a bit. Denies VICK, VC, and epigastric pain. - Leo Izaguirre is a 2 para 1 fe male with a history of one prior section presenting for routine care at 14 weeks and 1 day gestation. - She reports that her nausea and vomiti ng have dialed down a bit since her last visit. - She confirms awareness that she is carrying a male fetus. - Follow up in one month for routine care - Patient will receive call from [facility] for 20-week ultrasound (due in February) - Repeat scheduled at 39 weeks , one week before due date - If water breaks: deliver at 37+ weeks; hospitalize with medications for delivery between 34-37 weeks; hospitalize until 34 weeks if rupture occurs before 34 weeks 01/26/25 -?-?-?-?-?-?-?-?-?-?-?-?- 19w 3d 92.703 kg 136/76 absent cephalic 145 active - She has a history of previous section and her last was induced for high blood pressure. - She reports experiencing morning nause a. - She has been monitoring her blood pres sure at home over the past week, with readings around 120/80. - Start baby aspirin to prevent preeclampsia - Monitor blood pressure at home and rowdy l if systolic over 140 or diastolic over 90 - Report headaches, flashes of light, or right-sided pain - Will consult with [facility] for and continue appointments here until 37-38 weeks, then transfer - Have a glass of cold milk in the [facility] for nausea - Follow up in 2 weeks for blood pressur e check - Follow up in 4 weeks for routine OB an d MS-AFP 02/05/25 -?-?-?-?-?-?-?-?-?-?-?-?- 20w 6d 93.95 kg 126/76 absent cephalic 21 145 active presenting for blood pressure check. - Current blood pressure: 126/76 mmHg - Improved from last week's elevated r eading of 136/76 mmHg - Patient was prescribed low-dose aspiri n at previous visit - Has not yet started taking it - Patient inquired about obtaining a [place] referral - Confirms plans to attempt (Vaginal After ) Plan - Start low-dose aspirin regimen - Send prescription for aspirin to [facility] in [facility] - Follow up in 4 weeks - Return sooner if experiencing headache , bloating, or feeling uneasy - Continue with V-FARIDA plan - Patient to obtain [facility] referral form om [facility] office for completion 02/19/25 -?-?-?-?-?-?-?-?-?-?-?-?- 22w 6d 94.914 kg 111/73 absent cephalic 23 165 active - Patient is due for one-hour glucose tolerance test. - All previous screening tests, includin g AFP, have been negative. - A referral has been sent to the women' s clinic in [place] for potential transfer of care at 37 weeks gestation. - Patient has a history of previous section. - One-hour glucose tolerance test to be completed within the next 2-3 weeks - Referral sent to women's clinic in [facility] for review and establishment of care - Plan to transfer care at approximately 37 weeks gestation - Follow-up appointment scheduled in 4 w eeks - Patient to expect phone call from [facility] 03/07/25 -?-?-?-?-?-?-?-?-?-?-?-?- 25w 1d 95.028 kg 131/81 absent cephalic 25 155 active - She reports her highest glucose reading was 143 mg/dL, which occurred after eating rice. - Morning fasting glucose numbers are in the hundreds, with readings of 80, 86, and 103 mg/dL documented. - She has been monitoring her blood gluc ose levels and documenting her food intake to correlate with glucose spikes. - She notes that rice consumption causes her glucose levels to increase. - She reports eating normal foods and no t being particularly strict with her diet. - She currently eats rice 2-3 times per week, typically steamed rice. - She has not received a call from [facility] but did receive a letter from them. - Her wants her to deliver in [facility] due to proximity, but she reports difficulty finding accepting providers in that area. 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 Ny) or [facility] to explore delivery options in [place] - Await call from [place] regarding refer ral 04/04/25 -?-?-?-?-?-?-?-?-?-?-?-?- 29w 1d 97.636 kg 131/79 absent cephalic 30 162 active - She has gestational diabetes and was previously prescribed metformin but discontinued the medication and is managing with diet alone. - Blood sugar control has been good with morning values in the 70s-80s and post- meal values not exceeding 150 mg/dL. - She has been walking frequently which she reports helps with glucose control. - Baby is active and she reports normal movement. - She has established care at [place] for delivery planning and was told to transition there at 38 weeks for (vaginal after ) monitoring. - She is considering delivery options an d leaning toward scheduling an elective section rather than attempting . - She has an upcoming ultrasound scheduled for April 24. - Continue current diet management for gestational diabetes without metformin - Transfer care to [place] at 38 weeks ge station for vs repeat delivery management - Obtain routine laboratory studies incl uding anemia check, RPR, and A1C - Schedule anatomy ultrasound for [facility] er to assess anatomy, C- section scar, and placenta - Follow up in 2 weeks 04/20/25 -?-?-?-?-?-?-?-?-?-?-?-?- 31w 3d 98.43 kg 126/77 absent cephalic 32 155 active - Patient is scheduled for repeat section on June 12, 2025 at 39 weeks and 0 days gestation. - Due date is June 19, 2025 - section scheduled for Jun 12 at 7:30 AM - Patient reports baby is very active. - Patient reports occasional elevated bl ood sugars on some days. - Blood sugars reached 150-160 on one day, likely around due to increased food intake - Blood sugars returned to normal leve ls after the holiday - Patient has history of abnormal pap smear test years ago. - Scheduled repeat section on June 12, 2025 at 7:30 AM at 39 weeks 0 days gestation - CBC and A1C laboratory tests to be com pleted 2 weeks prior to next appointment - Pap smear to be performed at 6-week po stpartum visit - Follow-up appointment in 2 weeks 05/15/25 -?-?-?-?-?-?-?-?-?-?-?-?- 35w 0d 98.089 kg 123/85 absent cephalic 35 145 active - Patient reports her blood sugar levels are holding up okay. - She describes the baby as very active. - Patient inquires about sensitivity in her scar, describing it as feeling bumpy. - She is scheduled for repeat at 39 weeks on June 12. - Patient reports the scar sensitivity m ay have been more noticeable last night, questioning if it's related to her growing size. - Repeat section scheduled for 39 weeks on June 12 - Follow-up appointment in 2 weeks - Ultrasound after next appointment to [facility] current weight measurement - GBS culture performed - NST (non-stress test) to be scheduled for monitoring with 20-minute strip and ultrasound - Apply aloe vera cream for sca r sensitivity due to stretching - Continue frequent ultrasound monitorin g due to high-risk status ANA CRISTINA Calculator Estimated Delivery Date Method Current WG Current Estimate 06/19/25 Ultrasound #1 35w 0d Notes Visit Date: 03/07/25 Last Updated by: Delvis Bangura MD - Glucose monitoring results: - Highest glucose readin mg/dL - Fasting glucose values: 80, 86, 100, 103 mg/dL - Target values discussed: <140 mg/dL at 1 hour post-meal, <130 mg/dL at 2 hours post-meal, fasting up to 110 mg/dL acceptable - heart rate: 172 bpm Visit Date: 12/20/24 Last Updated by: Delvis Bangura MD - Date: 11/26/2024 - Initial panel: Hepatitis B negative, Hepatitis C negative, RPR non-reactive, Rubella immune, Blood group B-positive, Antibody screen negative, Gonorrhea negative, Chlamydia negative - Urinalysis: Grossly within normal limits with 1+ protein and 1+ ketones - Genetic screening (NiPT): Negative for trisomies, consistent with male gender - Obstetric ultrasound (12/20/2024): anatomy appropriate, placenta normal appearance, amniotic fluid normal, gender male heart tones: Not documented bpm. Office Procedures [facility] LOC & Office Proc's Nursing/Assessment Patient Status: Established Patient OB Clinic Nursing Assessment: Medication Reconciliation, Update PMH in EMR and Vital Signs OB Clinic Coordination of Care: Complex Care and Chronic Disease 1-5, Consent,records obtained, informed consent, Education Simp Pt/Fam, 1 Ins Authorization, Lab and Imaging orders, Results/Orders obtained and Staff clarify orders Special Needs: Heart tones Miscellaneous Interventions: Culture Specimen Collection Established Patient Charge Established Patient Point Assignment: 165 Established Patient Point Charge: EP Level 5 (160-above) Assessment & Plan Diagnosis / Problem List (1) Abnormal glucose complicating : Status: Acute (2) Uterine size date discrepancy, antepartum: Status: Acute (3) Maternal care for low transverse scar from previous delivery: Status: Acute Plan Problem List - Gestational diabetes mellitus - Previous delivery Assessment 30-year-old female at 35 weeks 0 days gestation with gestational diabetes mellitus on metformin with glucose levels reportedly stable, scheduled for repeat section at 39 weeks. Patient reports active movement and scar sensitivity with palpable changes consistent with normal stretching effects during . Group B Streptococcus culture was performed during this visit. Plan - Repeat section scheduled for 39 weeks on June 12 - Follow-up appointment in 2 weeks - Ultrasound after next appointment to obtain current weight measurement - GBS culture performed - NST (non-stress test) to be scheduled for monitoring with 20-minute strip and ultrasound - Apply aloe vera cream for scar sensitivity due to stretching - Continue frequent ultrasound monitoring due to high-risk status 1. Progress Reviewed gestational age (35 weeks 0 days), growth, and heart rate. Patient reports baby is very active. Planned frequent visits (every 2 weeks until 36 weeks, then weekly). Repeat section scheduled for 39 weeks on June 12. 2. Instructed patient to monitor movements and report decreases immediately. 3. Testing Counseled on routine third-trimester labs per guidelines. GBS culture performed during visit. Discussed potential need for ultrasound or monitoring based on risk factors. Ultrasound scheduled after next appointment for weight measurement. NST (non-stress test) ordered for ongoing monitoring. 4. Preeclampsia Precaution Educated on preeclampsia signs: severe headache, vision changes, right upper quadrant pain, sudden swelling. Advised urgent reporting of symptoms and discussed blood pressure monitoring if high risk. 5. Labor Precautions Reviewed labor signs: regular contractions, pelvic pressure, back pain, bleeding, or fluid leakage. Instructed to seek immediate care for these symptoms. 6. Lifestyle and Delivery Preparation Reinforced vitamins, nutrition, and safe activity. Patient counseled on gestational diabetes management with continued metformin. Discussed plan (repeat section), pain management, and . Patient educated about scar sensitivity being normal due to stretching, recommended aloe vera cream for comfort. Advised on labor preparation (e.g., hospital bag) and expectations. 7. Psychosocial Support Assessed emotional well-being and offered resources for mental health or parenting support.
== END 2025-05-15 13:48 | disposition home or self-care (01) ==
LOC: HODSOBC 13:05
PROVIDERS: Supervising Provider Obstetrics & Gynecology; Visit Provider Obstetrics & Gynecology
DX: O09.293 Supervision of pregnancy with other poor reproductive or obstetric history, third trimester (principal); O34.211 Maternal care for low transverse scar from previous cesarean delivery; O09.893 Supervision of other high risk pregnancies, third trimester; O24.415 Gestational diabetes mellitus in pregnancy, controlled by oral hypoglycemic drugs; O26.843 Uterine size-date discrepancy, third trimester; Z3A.35 35 weeks gestation of pregnancy; Z36.85 Encounter for antenatal screening for Streptococcus B; Z28.21 Immunization not carried out because of patient refusal
CPT/HCPCS: 99215; G0463